=== PATIENT | female | born 1960 | race Caucasian/White ===

== ENCOUNTER 2018-01-10 08:04 | Inpatient (IN) | payer OTHER, MEDICARE ==
[2017-12-23 09:49] VITALS: BMI 25.7
--- NOTE | 2018-01-10 07:57 | HP ---
Satellite [facility] - Chief Complaint Chief Complaint: left hip pain - Past Medical History Allergies/Adverse Reactions: Allergies Allergy/AdvReac Type Severity Reaction Status Date / Time No Known Drug Allergies Allergy Verified 12/23/17 09:41 - Current Medications Current Medications: Home Medications Medication Instructions Recorded Atorvastatin Ca [Lipitor -] 20 mg PO HS 11/09/14 Calcium Carb/Vitamin D3/Vit K1 1 each PO DAILY 12/23/17 [Calcium + D Soft Chewable Tab] Gabapentin 400 mg PO BID 12/23/17 Multivitamin [Poly-Vitamin] 1 each PO DAILY 12/23/17 Nabumetone [Relafen -] 750 mg PO DAILY 12/23/17 Ubidecarenone [Coq-10] 100 mg PO DAILY 12/23/17 Vitamin B Complex [B Complex] 1 each PO DAILY 12/23/17 Satellite Physical Exam - Physical Examination General Appearance: Well Nourished, Well Developed, Alert & Oriented x3 ENT: Clear Lung: Normal air movement Heart: Regular rate & rhythm Extremities: Other (left hip- + ttp ,dec rom, nvi xrays show grade 4 hip djd) Neurological: Intact, Alert, Oriented Satellite Impression/Plan - Impression/Plan Impression: left hip djd Operative Procedure: left cynthia thr Date to be Performed: 01/10/18
[2018-01-10] MEDS ORDERED: CEFAZOLIN 2 GM in DEXTROSE 5%-WATER - 50 ML IVPB ONE (08:27)
[2018-01-10] MEDS ORDERED: TRANEXAMIC ACID 1000 MG/10 ML VIAL IVPUSH ONE (08:27)
[2018-01-10] MEDS: CELECOXIB 200 MG CAPSULE PO ONE ×2 (09:15→15:39)
[2018-01-10] MEDS: GABAPENTIN 300 MG CAPSULE (FP) PO ONE ×2 (09:15→15:39)
[2018-01-10] MEDS ORDERED: EPINEPHrine/PF 1 MG/1 ML (1:1,000) AMPULE ONE (10:47)
[2018-01-10] MEDS ORDERED: ROPIVACAINE HCL 0.5% 30ML VIAL ONE (10:47)
[2018-01-10] MEDS ORDERED: MIDAZOLAM HCL 2 MG/2 ML SINGLE DOSE VIAL ONE ×2 (10:47→11:10)
[2018-01-10] MEDS ORDERED: DEXAMETHASONE SOD PHOSPHATE/PF 10 MG/ML SDV ONE (10:47)
[2018-01-10] MEDS ORDERED: ceFAZolin SODIUM 1 GM VIAL ONE ×2 (11:00→12:45)
[2018-01-10] MEDS ORDERED: LIDOCAINE HCL/PF 2% SDV 5ML VIAL ONE (11:00)
[2018-01-10] MEDS ORDERED: PROPOFOL 20 ML ONE ×2 (11:00→13:09)
[2018-01-10] MEDS ORDERED: VANCOMYCIN 1,000 MG VIAL (RESTRICTED TO ID ONLY) ONE (11:00)
[2018-01-10] MEDS ORDERED: ACETAMINOPHEN 325 MG TABLET (FP) PO PRN (12:32)
[2018-01-10] MEDS ORDERED: ONDANSETRON 4 MG/2 ML VIAL IVPUSH PRN (12:32)
[2018-01-10] MEDS ORDERED: oxyCODONE HCL 5 MG TABLET PO PRN (12:33)
[2018-01-10] MEDS ORDERED: DEXAMETHASONE SOD PHOSPHATE 4 MG/1 ML VIAL ONE (12:45)
[2018-01-10] MEDS ORDERED: PHENYLEPHRINE HCL 10 MG/1 ML SINGLE DOSE VIAL ONE (13:15)
[2018-01-10] MEDS ORDERED: ePHEDrine SULFATE 50 MG/1 ML AMPULE ONE (13:15)
[2018-01-10] MEDS ORDERED: MAG HYDROX/AL HYDROX/SIMETH 30 ML UNIT-DOSE CUP PO PRN (13:40)
[2018-01-10] MEDS ORDERED: MAGNESIUM HYDROX 2400MG/30ML ORAL SUSPENSION 30 ML CUP PO PRN (13:40)
--- NOTE | 2018-01-10 13:43 | OP ---
Operative Note - Note: Operative Date: 01/10/18 (karla) Pre-Operative Diagnosis: left hip djd Operation: left cynthia thr Post-Operative Diagnosis: Same as Pre-op Surgeon: Izaiah Loyd Welt Insole Channeler: Trung Cabrera Anesthesiologist/FULL STACK JAVA DEVELOPER: Simon Hillman Anesthesia: Spinal, Local Specimens Removed: femoral head Estimated Blood Loss (mls): 100 Operative Report Dictated: Yes
[2018-01-10] MEDS ORDERED: LACTATED RINGERS SOLUTION 1,000 ML IV SCH (13:45)
--- NOTE | 2018-01-10 13:56 | SPEC ---
DATE OF OPERATION: 01/10/2018 PREOPERATIVE DIAGNOSIS: Degenerative joint disease left hip. POSTOPERATIVE DIAGNOSIS: Degenerative joint disease left hip. PROCEDURE PERFORMED: Left total hip replacement with robotic-assisted navigation (MAKOplasty). SURGICAL ATTENDING: Izaiah Loyd MD PROPOSAL WRITER: BRITTANY Mckinley ANESTHESIA: Regional and spinal. CLOSURE: An Rafy hip system with a 48 Trident 2 Press-Fit acetabulum, a +3 NDM head, and No. 6 Accolade 2 femoral stem. Number 1 Vicryl for fascia, 0 and 2-0 subcutaneous, 3-0 V-Loc subcuticular for skin with skin glue, 4-0 undyed Vicryl for pin sites. ESTIMATED BLOOD LOSS: Less than 100 mL. COMPLICATIONS: None. CONDITION: To the recovery room in stable condition. DESCRIPTION OF PROCEDURE: The patient was taken to the operating room on January 10, 2018. General and regional anesthesia was administered by the anesthesiologist. IV Kefzol and TXA were administered prophylactically prior to the case. The patient was placed in the lateral decubitus position will all prominences well-padded. The left hip area was prepped and draped in the usual sterile fashion. Using 3 small stab incisions over the iliac crest, 3 threaded pins were drilled in power fashion through the 2 tables of the crest. These pins were fastened and the navigation array for the Niles navigation system. Next, a 12 to 15-cm curved longitudinal incision over the posterolateral aspect of the greater trochanter was incised. Hemostasis was achieved with Bovie cautery. Sharp dissection was carried down to level of the fascia. The fascia was opened the entire length of the incision, spreading the fibers of the gluteus lawanda in the direction of origin. A Charnley retractor was placed in this layer. Care was taken not to impale the sciatic nerve. The short external rotators were detached off the insertion of the greater trochanter and peeled off the capsule. A posterior capsulotomy was then performed. A check point was malleted into the greater trochanter and a point on the inferior pole of the patella was obtained as well. These 2 points were used to assess the preoperative offset and limb lengths of the hip. The hip was then dislocated. The femoral neck was then osteotomized down to the appropriate level as directed by the navigation device. Anterior and posterior retractors were placed, exposing the acetabulum. A circumferential labral excision was performed. A check point was malleted into the acetabulum as well. Multiple sites inside the acetabulum and around the rim were utilized to register the acetabulum with the navigation device. An excellent registration of less than 0.5 mm was obtained. The hip was then reamed with the appropriate reamer down to the appropriate depth, with the appropriate orientation and version as assessed on our preoperative plan for this patient. The reamer was removed and the acetabulum was inspected to have good bleeding surfaces throughout. The real acetabular cup was then malleted down into place, with the holes in the appropriate position, until an excellent fixation was obtained. No screws were necessary. The navigation device ensured appropriate orientation and version, with the depth as predetermined. The appropriate liner was then clipped into place. Attention was directed to the femur. The proximal femur was prepared by use a box chisel, a canal finder and serial broaches until the broach achieved excellent rigidity in the proximal femur with the appropriate version being applied. A calcar planer was used to smooth off the calcar flush with the trial components. A trial reduction with the appropriate head was done, and the hip was reduced. The hip was taken through a range of motion from full extension with external rotation to marked flexion, and was stable at 90 degrees of flexion. It was stable to marked abduction and internal rotation, with a positive hang test and negative telescoping. Limb lengths were ascertained visually as well as with the navigation device to be within the targeted range for this patient. The trial component was removed. The real component was then malleted into place. The head was cold welded to the trunnion, and the hip was reduced. Range of motion, stability and limb lengths were as described in the trial component. Then the hip was pulse antibiotic irrigated. Vancomycin powder was placed in the hip joint. The capsule was closed. The fascia was then closed as well using number 1 Vicryl interrupted suture, 0 and 2-0 subcutaneous, and 3-0 V-Loc for the skin. 4-0 undyed Vicryl was used to close the pin sites after the pins were removed. All check points were also removed. Sterile Aquacel dressing was applied. The patient was awakened from anesthesia and transferred into the supine position. Bilateral SCDs and an abduction pillow were placed. X-rays revealed excellent position of the components. The patient was transferred to the recovery room in stable condition, with no complications. Estimated blood loss was less than 100 mL. Jacinta RODRIGUEZ/[id number]
[2018-01-10] MEDS ORDERED: ONDANSETRON 4 MG/2 ML VIAL IVPUSH ONE (14:20)
[2018-01-10] MEDS: GABAPENTIN 400 MG CAPSULE (FP) PO SCH (21:02)
[2018-01-10] MEDS: SENNOSIDES/DOCUSATE COMBO (SENNA PLUS) TABLET (UD) PO SCH (21:02)
[2018-01-10] MEDS: oxyCODONE HCL 5 MG TABLET PO PRN (21:02)
[2018-01-10] MEDS: ATORVASTATIN CA 20 MG TABLET (FP) PO SCH (21:02)
[2018-01-10] MEDS: CEFAZOLIN 2 GM/D5W 2 GM/50 ML ML IVPB SCH (21:03)
[2018-01-11] MEDS: CEFAZOLIN 2 GM/D5W 2 GM/50 ML ML IVPB SCH (04:05)
[2018-01-11] MEDS: ONDANSETRON 4 MG/2 ML VIAL IVPUSH PRN ×2 (04:54→12:00)
--- NOTE | 2018-01-11 08:46 | PN ---
Progress Note (short form) - Note Progress Note: Ortho Pt seen and examined s/p left cynthia thr pod #1 Selected Entries 01/11/18 06:59 Temperature 97.7 F Pulse Rate 66 Respiratory 18 Rate Blood Pressure 110/49 Laboratory Tests 01/11/18 07:10 WBC Pending Hgb Pending Hct Pending Plt Count Pending dressing c/d/i, calf soft, nt nvi a/p PT hip precautions dvt ppx pain control d/c home tomorrow if stable
[2018-01-11 08:48] LABS: HEMATOCRIT 34.7 % (32.4-45.2); HEMOGLOBIN 11.4 GM/dl (10.7-15.3); MCH 27.4 pg (25.7-33.7); MCHC 32.9 g/dl (32.0-36.0); MEAN CELL VOLUME 83.3 fl (80-96); MEAN PLT VOLUME 8.8 fl (7.5-11.1); PLATELET COUNT 199 K/MM3 (134-434); RBC 4.17 M/mm3 (3.60-5.2); RDW 13.7 % (11.6-15.6); WHITE BLOOD COUNT 8.9 K/mm3 (4.0-10.8)
[2018-01-11] MEDS: oxyCODONE HCL 5 MG TABLET PO PRN ×3 (09:17→20:12)
[2018-01-11] MEDS: MULTIVITAMINS (DAILY MVI) TABLET (FP) PO SCH (09:18)
[2018-01-11] MEDS: PANTOPRAZOLE 40 MG TABLET (FP) PO SCH (09:18)
[2018-01-11] MEDS: GABAPENTIN 400 MG CAPSULE (FP) PO SCH ×2 (09:18→22:14)
[2018-01-11] MEDS: SENNOSIDES/DOCUSATE COMBO (SENNA PLUS) TABLET (UD) PO SCH ×2 (09:18→22:14)
[2018-01-11] MEDS: ASPIRIN 325 MG TABLET PO SCH (09:18)
[2018-01-11] MEDS ORDERED: PATIENT'S OWN MEDICATION (NON-FORMULARY) (Multivitamin [Poly-Vitamin] 1 EACH) PO SCH (10:00)
[2018-01-11] MEDS: ATORVASTATIN CA 20 MG TABLET (FP) PO SCH (22:14)
[2018-01-12] MEDS: oxyCODONE HCL 5 MG TABLET PO PRN ×2 (03:11→09:18)
[2018-01-12 06:08] VITALS: BP 99/52; PULSE 93; TEMP 98.2
--- NOTE | 2018-01-12 08:46 | PN ---
Progress Note (short form) - Note Progress Note: Ortho Pt seen and examined s/p left cynthia thr pod #2 Selected Entries 01/12/18 06:00 Temperature 98.2 F Pulse Rate 93 H Respiratory 18 Rate Blood Pressure 99/52 Laboratory Tests 01/12/18 06:30 WBC Pending Hgb Pending Hct Pending Plt Count Pending dressing c/d/i, calf soft, nt nvi a/p PT hip precautions dvt ppx pain control d/c home today f/u in 1 week
--- NOTE | 2018-01-12 08:47 | DS ---
Physical Examination Vital Signs: Vital Signs Temperature 98.2 F 01/12/18 06:00 Pulse Rate 93 H 01/12/18 06:00 Respiratory Rate 18 01/12/18 06:00 Blood Pressure 99/52 01/12/18 06:00 O2 Sat by Pulse Oximetry (%) 95 01/12/18 06:07 Discharge Summary Procedures: Principal: left thr Hospital Course: admitted for elective left cynthia thr, uneventful post-op, stable for d/c Condition: Good - Instructions Diet, Activity, Other Instructions: Post-op Instructions-Total Hip Replacement Call the office for a follow-up appointment in 1 week - [phone] Aspirin 325mg daily for 6 weeks. Pain medication was sent into your pharmacy. Apply Graduated Compression Stockings (TEDs) to both lower extremities- remove daily for hygiene ONLY Apply Sequential Compression Device (SCDs) to both Lower extremities remove for PT and hygiene ONLY Apply cold packs to affected area for 15 minutes every 2 hours. Physical Therapist will come to your home for the first 5 days. You will be set up with outpatient PT at your first post-operative visit. Patient may ambulate as tolerated-encourage self care (at least every 2-3 hours while awake) with walker or cane Maintain Aquacel (waterproof) dressing to operative wound (will be removed by surgeon at first office visit) Shower with Aquacel dressing in place-if Aquacel integrity compromised, remove and apply dry sterile dressing and notify Orthopedist. DO NOT SHOWER unless Orthopedists approves without Aquacel dressing CONTACT THE OFFICE FOR ANY CHANGE IN YOUR CONDITION (for example-fever greater than 102 degrees, excessive bleeding from operative site, purulent drainage, severe swelling or pain) GO TO THE EMERGENCY ROOM IF THERE IS A MEDICAL EMERGENCY Hip Precautions: * Keep a rolled towel under affected heel while in bed or chair (to keep knee in extension) * Dependent upon approach: * Posterior - do not cross legs; do not sit on low chairs or toilets. * If you have any questions, please do not hesitate to call the office - [phone]. Referrals: Izaiah Loyd MD [Staff Physician] - - Home Medications Comprehensive Discharge Medication List: Ambulatory Orders Atorvastatin Ca [Lipitor -] 20 mg PO HS 11/09/14 Calcium Carb/Vitamin D3/Vit K1 [Calcium + D Soft Chewable Tab] 1 each PO DAILY 12/23/17 Gabapentin 400 mg PO BID 12/23/17 Multivitamin [Poly-Vitamin] 1 each PO DAILY 12/23/17 Nabumetone [Relafen -] 750 mg PO DAILY 12/23/17 Ubidecarenone [Coq-10] 100 mg PO DAILY 12/23/17 Vitamin B Complex [B Complex] 1 each PO DAILY 12/23/17 Oxycodone HCl/Acetaminophen [Percocet 5-325 mg Tablet -] 1 - 2 tab PO Q6H #50 tab MDD 8 01/10/18
[2018-01-12 08:51] LABS: HEMOGLOBIN 11.8 GM/dl (10.7-15.3); MCH 27.5 pg (25.7-33.7); MCHC 32.7 g/dl (32.0-36.0); MEAN CELL VOLUME 83.9 fl (80-96); MEAN PLT VOLUME 9.3 fl (7.5-11.1); PLATELET COUNT 209 K/MM3 (134-434); RBC 4.29 M/mm3 (3.60-5.2); RDW 13.8 % (11.6-15.6); WHITE BLOOD COUNT 8.8 K/mm3 (4.0-10.8)
[2018-01-12] MEDS: MULTIVITAMINS (DAILY MVI) TABLET (FP) PO SCH (09:18)
[2018-01-12] MEDS: SENNOSIDES/DOCUSATE COMBO (SENNA PLUS) TABLET (UD) PO SCH (09:18)
[2018-01-12] MEDS: ASPIRIN 325 MG TABLET PO SCH (09:18)
[2018-01-12] MEDS: GABAPENTIN 400 MG CAPSULE (FP) PO SCH (09:18)
[2018-01-12] MEDS: PANTOPRAZOLE 40 MG TABLET (FP) PO SCH (09:18)
--- NOTE | 2018-01-17 15:00 | PATH ---
Surgical Pathology Report Patient Name: JOHN MEHTA Med. Rec. #: [id number] /Age/Gender: 1960 (Age: 57) / F Account: [id number] Location: [facility] Taken: 01/10/2018 Received: 01/10/2018 Reported: 01/17/2018 Physicians: Izaiah Loyd M.D. Specimen(s) Received LEFT FEMORAL HEAD Clinical History Left hip osteoarthritis Final Diagnosis FEMORAL HEAD, LEFT, TOTAL HIP REPLACEMENT: DEGENERATIVE JOINT DISEASE. Electronically Signed Gianna Burgess M.D. Gross Description Received in formalin, labeled "left femoral head," is a 4.7 x 4.7 x 3.9 cm. femoral head with a 1.8 cm in length portion of femoral neck attached. The margin of resection is smooth. There is a 3 cm in greatest dimension area of eburnation identified. The remaining articular surface is fleming-yellow and diffusely granular. The underlying trabecular bone is yellow and hard. A customer service representative section is submitted in one cassette, following decalcification. 01/14/2018 [facility]01/14/2018
== END 2018-01-12 12:27 | disposition home health service (06) | DRG 470 ==
LOC: FASU 08:04 → FM/S 08:27
PROVIDERS: ADMIT Orthopaedic Surgery; ATTEND Orthopaedic Surgery
PROC: 8E0Y0CZ Robotic Assisted Procedure of Lower Extremity, Open Approach (ICD-10-PCS; 2018-01-10)
PROC: 0SRB01Z Replacement of Left Hip Joint with Metal Synthetic Substitute, Open Approach (ICD-10-PCS; principal; 2018-01-10 12:40)
DX: M16.12 Unilateral primary osteoarthritis, left hip (principal)
CPT/HCPCS: 36415; 73502-TC-LT-FY; 85027; 88304-TC; 88311-TC; 94760; 97116-GP; 97162-GP

== ENCOUNTER 2020-04-23 08:43 | Inpatient (IN) | payer OTHER, MEDICARE ==
--- NOTE | 2020-04-23 09:01 | PDOC ---
History of Present Illness - General Chief Complaint: Redness To Affected Area Stated Complaint: FACE SWOLLEN Time Seen by Provider: 04/23/20 09:00 History Source: Patient Exam Limitations: No Limitations - History of Present Illness Initial Comments: 04/23/20 09:23 59 y.o. F PMHx for HLD, arthritis presenting due to R facial swelling. Patient reports she ahd woke up on thrusday morning and noticed the R side of her face swollen and red. She went to the ENT yesterday who prescribed valtrex. She came into the ED today due to increased spread of the affected region. Patient states she feels the area is warm to the touch and itchy, and a fontal headache overnight. Patient denies blurry vision, decreased hearing, SOB, chest pain. Patient reports no insect bites, no food or medication changes and has not left the house for the few days prior to symptoms. PCP: Dr. Melendez Specialist: Dr. Munoz PMHx: HLD, arthritis PSHx: Hip replacement 2017 Meds: In Chart Allergies: NKA, nausea w/ percocet 04/23/20 09:35 Is this a multiple visit Asthma Patient?: No Timing/Duration: 24 hours Severity: moderate Past History - Medical History Allergies/Adverse Reactions: Allergies Allergy/AdvReac Type Severity Reaction Status Date / Time No Known Drug Allergies Allergy Verified 04/23/20 08:46 Home Medications: Ambulatory Orders Atorvastatin Ca [Lipitor -] 20 mg PO HS 11/09/14 Gabapentin 400 mg PO BID 12/23/17 Cephalexin [Keflex] 500 mg PO TID 04/23/20 Mupirocin Cream [Bactroban 2% Cream -] 1 applic TP TID 04/23/20 Valacyclovir HCl [Valtrex] 1,000 mg PO TID 04/23/20 Anemia: No Asthma: No Cancer: No Cardiac Disorders: No CVA: No COPD: No CHF: No Dementia: No Diabetes: No GI Disorders: No Disorders: No HTN: No Hypercholesterolemia: Yes Liver Disease: No Seizures: No Thyroid Disease: No - Surgical History Abdominal Surgery: No Appendectomy: No Cardiac Surgery: No Cholecystectomy: No Lung Surgery: No Neurologic Surgery: Yes (LUMBAR L5 DISCECTOMY) Orthopedic Surgery: Yes (2012 RIGHT HIP REPLACEMENT) - Psycho-Social/Smoking History Smoking Status: No Smoking History: Never smoked Have you smoked in the past 12 months: No Number of Cigarettes Smoked Daily: 0 - Substance Abuse Hx (Audit-C & DAST Scrn) How often the patient has a drink containing alcohol: Never Score: In Men: 4 or > Positive; In Women: 3 or > Positive: 0 Screen Result (Pos requires Nsg. Audit-10AR): Negative In the last yr the pt used illegal drug/Rx for NonMed reason: No Score: Yes response is considered Positive: 0 Screen Result (Positive result requires Nsg. DAST-10): Negative Review of Systems - Review of Systems Able to Perform ROS?: Yes Is the patient limited Brazilian proficient: No Constitutional: No: Chills, Fever HEENTM: No: Eye Pain, Blurred Vision, Double Vision Respiratory: No: Cough, Shortness of Breath Cardiac (ROS): No: Chest Pain, Lightheadedness ABD/GI: No: Constipated, Diarrhea, Nausea, Vomiting : No: Burning, Dysuria Musculoskeletal: No: Back Pain, Joint Pain, Muscle Weakness Integumentary: Yes: Erythema, Pruritus, Rash. No: Bruising, Dryness Neurological: Yes: Headache. No: Numbness, Tingling, Dizziness Hematologic/Lymphatic: No: Easy Bleeding, Easy Bruising *Physical Exam - Vital Signs Last Vital Signs Temp Pulse Resp BP Pulse Ox 97.3 F L 92 H 18 148/64 99 04/23/20 08:46 04/23/20 08:46 04/23/20 08:46 04/23/20 08:46 04/23/20 08:46 - Physical Exam General Appearance: Yes: Nourished, Appropriately Dressed HEENT: positive: EOMI, NEVIN, Normal Voice, Symmetrical, TMs Normal, Other (20/50 vision b/l). negative: Normal ENT Inspection, Scleral Icterus (R), Scleral Icterus (L), Muffled/Hoarse voice, Hearing Decreased, TM Bulging, TM Dull, TM Erythema Respiratory/Chest: positive: Lungs Clear, Normal Breath Sounds. negative: Chest Tender, Crackles, Rales, Stridor, Wheezing Cardiovascular: positive: Regular Rhythm, Regular Rate. negative: Edema, JVD, Murmur Gastrointestinal/Abdominal: positive: Normal Bowel Sounds, Flat, Soft. negative: Tender, Distended, Guarding, Rebound Musculoskeletal: positive: Normal Inspection. negative: CVA Tenderness Extremity: negative: Tender, Swelling, Calf Tenderness Integumentary: positive: Dry, Warm, Rash, Swelling, Other (Patient has an area of erythema on the R side of the face starting 1cm anterior of the R ear to the lower eyelid, overall size is approximately 6cm x 6cm, is warm to the touch, no blistering, crusting, abrasions, 1 vesicle). negative: Normal Color Neurologic: positive: Fully Oriented, Alert, Normal Mood/Affect, Normal Response ED Treatment Course - LABORATORY CBC & Chemistry Diagram: 04/23/20 10:05 04/23/20 10:05 Medical Decision Making - Medical Decision Making 04/23/20 09:35 59 y.o. F PMHx for HLD, arthritis presenting due to R facial swelling. DDx: Shingles, Cellulitis, andres anton syndrome Labs: WBC 5, Na 147, K 4.6 - Given Prednisone 60mg, Vancomycin 1g Dispo: Admit 04/23/20 11:29 Discharge - Discharge Information Problems reviewed: Yes Clinical Impression/Diagnosis: Cellulitis Qualifiers: Site of cellulitis: face Qualified Code(s): L03.211 - Cellulitis of face - Admission Yes - Follow up/Referral Referrals: Britt Robles MD [Primary Care Provider] - - Patient Discharge Instructions - Post Discharge Activity
--- NOTE | 2020-04-23 09:04 | PDOC ---
Attending Attestation - Resident Resident Name: Dayday Huerta - ED Attending Attestation I have performed the following: I have examined & evaluated the patient, The case was reviewed & discussed with the resident, I agree w/resident's findings & plan, Exceptions are as noted - HPI HPI: 59 yo F history HL, arthritis presents with R facial swelling and redness. She states she was diagnosed with suspected shingles by ENT yesterday, started on Valtrex. Today she presents to ED because the redness is more extensive. Denies any blurry vision, hearing changes, pain with eye movements. She notes that she scratched an area on her ear prior to this occurring. - Physicial Exam PE: GENERAL: Awake, alert, and fully oriented, in no acute distress HEAD: No signs of trauma. +Erythema to the R side of the face, involving the cheek, religion, extending into the neck EYES: PERRLA, EOMI, sclera anicteric, conjunctiva clear. VA 20/50 on both sides ENT: Auricles normal inspection, hearing grossly normal, nares patent, oropharynx clear without exudates. Moist mucosa NECK: Normal ROM, supple, no lymphadenopathy, JVD, or masses LUNGS: Breath sounds equal, clear to auscultation bilaterally. No wheezes, and no crackles HEART: Regular rate and rhythm, normal S1 and S2, no murmurs, rubs or gallops ABDOMEN: Soft, nontender, normoactive bowel sounds. No guarding, no rebound. No masses EXTREMITIES: Normal range of motion, no edema. No clubbing or cyanosis. No cords, erythema, or tenderness NEUROLOGICAL: Cranial nerves II through XII grossly intact. Normal speech, normal gait. Motor and sensation intact SKIN: Warm, dry, normal turgor. - Medical Decision Making 04/23/20 10:00 Patient diagnosed with suspected shingles as an outpatient. There is one lesion to the religion that may be a vesicle forming, however, I am concerned that multiple dermatomes are involved (at least 3), and that this is so erythematous. Not typical for isolated shingles. I suspect a cellulitis, which may be complicating shingles. No vesicles to ear/eye. Will treat with IV abx and admit. If this spreads to affect eyes/ears, would consider transfer. Discharge - Discharge Information Problems reviewed: Yes Clinical Impression/Diagnosis: Cellulitis Qualifiers: Site of cellulitis: face Qualified Code(s): L03.211 - Cellulitis of face - Follow up/Referral - Patient Discharge Instructions - Post Discharge Activity
--- OUTSIDE RECORDS SUMMARY | 2020-04-23 09:10 | XMS ---
:1960 [facility] Support Name Relationship Address Phone RE Unavailable Unavailable Unavailable JONO MEHTA SISTER [address] [place] [address] MIMA MEHTA MOTHER [address] [place] [address] Re-disclosure Warning The records that you are about to access may contain information from federally- assisted alcohol or drug abuse programs. If such information is present, then the following federally mandated warning applies: This information has been disclosed to you from records protected by federal confidentiality rules (42 CFR part 2). The federal rules prohibit you from making any further disclosure of this information unless further disclosure is expressly permitted by the written consent of the person to whom it pertains or as otherwise permitted by 42 CFR part 2. A general authorization for the release of medical or other information is NOT sufficient for this purpose. The Federal rules restrict any use of the information to criminally investigate or prosecute any alcohol or drug abuse patient.The records that you are about to access may contain highly sensitive health information, the redisclosure of which is protected by Article 27-F of the [facility] Public Health law. If you continue you may haveaccess to information: Regarding HIV / AIDS; Provided by facilities licensed or operated by the [facility] Office of Mental Health; or Provided by the [facility] Office for People With Developmental Disabilities. If such information is present, then the following [facility] mandated warning applies: This information has been disclosed to you from confidential records which are protected by state law. State law prohibits you from making any further disclosure of this information without the specific written consent of the person to whom it pertains, or as otherwise permitted by law. Any unauthorized further disclosure in violation of state law may result in a fine or skilled nursing sentence or both. A general authorization for the release of medical or other information is NOT sufficient authorization for further disclosure. Insurance Providers Payer name Policy type Policy ID Covered Covered libertarian's Policy P julius / Coverage libertarian ID relationship to [place] Inf ormation type kimble MEDICARE [id number] SP [id number] [facility] [id number] SP [id number] CARE [employer] MEDICARE [id number] SP [id number] A
[2020-04-23] MEDS ORDERED: predniSONE 20 MG TABLET (UD) PO ONE (09:55)
[2020-04-23] MEDS ORDERED: VANCOMYCIN 1 GM in D5W (PRE-DOCKED) 1,000 MG/250 ML IVPB ONE (09:56)
[2020-04-23] MEDS ORDERED: VANCOMYCIN 1 GRAM (PRE-DOCKED) 1,000 MG/250 ML BAG IVPB ONE (10:02)
[2020-04-23] MEDS ORDERED: predniSONE 20 MG TABLET (UD) ONE (10:02)
[2020-04-23 10:31] LABS: BASO % 0.6 % (0-2.0); EOS % 0.9 % (0-4.5); HEMATOCRIT 38.8 % (32.4-45.2); HEMOGLOBIN 12.6 GM/dL (10.7-15.3); LYMPH % 18.8 % (8-40); MCH 27.2 pg (25.7-33.7); MCHC 32.4 g/dl (32.0-36.0); MEAN PLT VOLUME 8.2 fl (7.5-11.1); MONO % 17.8 % (3.8-10.2); NEUT % 61.9 % (42.8-82.8); PLATELET COUNT 188 K/MM3 (134-434); RBC 4.62 M/mm3 (3.60-5.2); RDW 14.4 % (11.6-15.6)
[2020-04-23 11:14] LABS: ALBUMIN 3.5 g/dl (3.4-5.0); BILIRUBIN,TOTAL 0.6 mg/dL (0.2-1); CALCIUM 9.2 mg/dL (8.5-10.1); CREATININE 0.6 mg/dL (0.55-1.3); POTASSIUM 4.6 mmol/L (3.5-5.1); TOT PROT 7.1 g/dl (6.4-8.2)
--- OUTSIDE RECORDS SUMMARY | 2020-04-23 13:09 | XMS ---
:1960 Author Organization [facility] Support Name Relationship Address Phone RE Unavailable Unavailable Unavailable RE Unavailable Unavailable Unavailable JANINE SISTER [address] [place] [address] JANINE MOTHER [address] [place] [address] Re-disclosure Warning The records that you are [...] is protected by Article 27-F of the [facility] Public Health law. If you continue you may haveaccess to information: Regarding HIV / AIDS; Provided by facilities licensed or operated by the [facility] Office of Mental Health; or Provided by the [facility] Office for People With Developmental Disabilities. If such information is present, then the following [facility] mandated warning applies: This information has been [...] law may result in a fine or residential sentence or both. A general authorization for the release of medical or other information is NOT sufficient authorization for further disclosure. Insurance Providers Payer name Policy type Policy ID Covered Covered republican's Policy P julius / Coverage republican ID relationship to [place] Inf ormation type kimble MEDICARE [id number] SP [id number] [facility] [id number] [employer] MEDICARE [id number] SP [id number] A
[2020-04-23] MEDS ORDERED: CEFTRIAXONE 1,000 MG in DEXTROSE 5%-WATER - 50 ML IVPB ONE (14:59)
[2020-04-23] MEDS ORDERED: CEFTRIAXONE 1 GM/50 ML BAG ONE (15:05)
--- NOTE | 2020-04-23 15:10 | HP ---
CHIEF COMPLAINT: Facial swelling PCP: Dr. Britt Robles HISTORY OF PRESENT ILLNESS: 59 y.o. F w/ PMHx HLD, arthritis who presented to the ER c/o worsening R facial swelling and redness. Pt noticed area of redness and swelling . When the rash did not go away, the patient saw an ENT yesterday. The ENT was concerned for possible shingles and prescribed valtrex and cefalexin. She was instructed to got to the ER if the rash got worse. The patient woke up today and the rash had extended and was not up to the right orbital ridge and down under the right eye. She sought medical attention at this time. Patient denies fever, chills, pain in the orbit, pain when moving the right eye, pain in the right face, numbness or tingling on the right face. Recent Travel: none PAST MEDICAL HISTORY: see HPI PAST SURGICAL HISTORY: b/l hip arthroplasty Social History: Smoking: denies Alcohol: denies Drugs: denies Allergies No Known Drug Allergies Allergy (Verified 04/23/20 08:46) HOME MEDICATIONS: Home Medications Medication Instructions Recorded Atorvastatin Ca [Lipitor -] 20 mg PO HS 11/09/14 Gabapentin 400 mg PO BID 12/23/17 Cephalexin [Keflex] 500 mg PO TID 04/23/20 Mupirocin Cream [Bactroban 2% 1 applic TP TID 04/23/20 Cream -] Valacyclovir HCl [Valtrex] 1,000 mg PO TID 04/23/20 REVIEW OF SYSTEMS Negative except as noted in HPI PHYSICAL EXAMINATION Vital Signs - 24 hr 04/23/20 08:46 Temperature 97.3 F L Pulse Rate 92 H Respiratory 18 Rate Blood Pressure 148/64 O2 Sat by Pulse 99 Oximetry (%) GENERAL: Awake, alert, and fully oriented, in no acute distress. HEAD: Normal with no signs of trauma. EYES: Pupils equal, round and reactive to light, extraocular movements intact, sclera anicteric, conjunctiva clear. No lid lag. EARS, NOSE, THROAT: Ears normal, nares patent, oropharynx clear without exudates. Moist mucous membranes. LUNGS: Breath sounds equal, clear to auscultation bilaterally. No wheezes, and no crackles. No accessory muscle use. HEART: Regular rate and rhythm, normal S1 and S2 without murmur, rub or gallop. ABDOMEN: Soft, nontender, not distended, normoactive bowel sounds, no guarding, no rebound, no masses. No hepatomegaly or splenomegaly. LOWER EXTREMITIES: 2+ pulses, warm, well-perfused. No calf tenderness. No peripheral edema. NEUROLOGICAL: Cranial nerves II-X intact. Normal speech. SKIN: There is an area of uniform erythema extending from just anterior to the tragus on the right and extending to the right orbital ridge and extending under the right eye. The erythematous area extends from the hairline to prison down the cheek. There is an area of swelling anterior to the right tragus with no tenderness to palpation and no fluctuance. NO pain upon palpation of the erythematous area. NO pain upon movement of the extraocular muscles. No pain on palpation or gentle compression of the right globe. NO conjuntival injection. Left side of the face is unremarkable. There is one clear vesicle located prison between the tragus and the maxilla. Laboratory Results - last 24 hr 04/23/20 04/23/20 10:05 10:05 WBC 5.0 RBC 4.62 Hgb 12.6 Hct 38.8 MCV 84.0 MCH 27.2 MCHC 32.4 RDW 14.4 Plt Count 188 MPV 8.2 Absolute Neuts (auto) 3.1 Neutrophils % 61.9 Lymphocytes % 18.8 D Monocytes % 17.8 H D Eosinophils % 0.9 Basophils % 0.6 Nucleated RBC % 0 Sodium 140 Potassium 4.6 Chloride 106 Carbon Dioxide 26 Anion Gap 7 L BUN 17.0 Creatinine 0.6 Est GFR (CKD-EPI)AfAm 114.02 Est GFR (CKD-EPI)NonAf 98.38 Random Glucose 94 Calcium 9.2 Total Bilirubin 0.6 AST 21 ALT 23 Alkaline Phosphatase 94 Total Protein 7.1 Albumin 3.5 ASSESSMENT/PLAN: 59 y.o. F w/ PMHx HLD, arthritis who presented to the ER c/o worsening R facial swelling and redness. #Right eye erythema likely secondary to periorbital cellulitis -patient with right periorbital erythema characteristic of cellulitis -patient took one day of cephalexin and valtrex and the rash continued to worsen. -patient has no pain in right eye, is afebrile and apprears nontoxic, so retro-orbital cellulitis is less liekly -will monitor patient closely overnight for worsening -low threshold to tranfer patient to tertiary care center if she starts to exhibit ssx of retro-orbital cellulitis. -s/p vancomycin in the ED -will continue vanc and add ceftriaxone -ID consult for vancomycin dosing Family Medical History Family History: Denies Visit type - Emergency Visit Emergency Visit: Yes ED Registration Date: 04/23/20 Care time: The patient presented to the Emergency Department on the above date and was hospitalized for further evaluation of their emergent condition. - New Patient This patient is new to me today: Yes Date on this admission: 04/23/20 - Critical Care Critical Care patient: No
[2020-04-23] MEDS ORDERED: valACYclovir HCL 1000 MG TABLET PO SCH (15:15)
[2020-04-23] MEDS ORDERED: CEFTRIAXONE 1 GM in DEXTROSE 5%-WATER - 50 ML IVPB ONE (15:27)
[2020-04-23] MEDS: valACYclovir HCL 500 MG TABLET (FP) PO SCH ×2 (16:53→21:51)
[2020-04-23 20:21] VITALS: BMI 26.7
[2020-04-23] MEDS ORDERED: PT OWN MED DRAWER 7, Y5N ONE (20:50)
[2020-04-23] MEDS: GABAPENTIN 400 MG CAPSULE PO SCH (21:51)
[2020-04-23] MEDS: ATORVASTATIN CA 20 MG TABLET (FP) PO SCH (21:51)
[2020-04-24] MEDS: valACYclovir HCL 500 MG TABLET (FP) PO SCH ×2 (05:52→14:28)
[2020-04-24 08:25] LABS: HEMATOCRIT 36.1 % (32.4-45.2); HEMOGLOBIN 12.2 GM/dL (10.7-15.3); MCH 27.6 pg (25.7-33.7); MCHC 33.7 g/dl (32.0-36.0); MEAN PLT VOLUME 7.7 fl (7.5-11.1); PLATELET COUNT 211 K/MM3 (134-434); RDW 14.2 % (11.6-15.6); WHITE BLOOD COUNT 5.4 K/mm3 (4.0-10.0)
[2020-04-24 08:58] LABS: BILIRUBIN,TOTAL 0.6 mg/dL (0.2-1); BLOOD UREA NITROGEN 15.9 mg/dL (7-18); CALCIUM 9.4 mg/dL (8.5-10.1); CREATININE 0.6 mg/dL (0.55-1.3); MAGNESIUM 2.1 mg/dL (1.8-2.4); PHOSPHOROUS 2.9 mg/dL (2.5-4.9); POTASSIUM 4.2 mmol/L (3.5-5.1); TOT PROT 6.5 g/dl (6.4-8.2)
[2020-04-24] MEDS ORDERED: VANCOMYCIN 1 GM in D5W (PRE-DOCKED) 1,000 MG/250 ML IVPB SCH (10:00)
[2020-04-24] MEDS ORDERED: PT OWN MED DRAWER 7, Y5N ONE ×2 (10:53→21:40)
[2020-04-24] MEDS: GABAPENTIN 400 MG CAPSULE PO SCH ×2 (10:55→21:49)
--- NOTE | 2020-04-24 12:27 | PN ---
Physical Exam: SUBJECTIVE: Patient seen and examined. Pt complained of itchiness of the R side of face. Denied pain. Denied changes in detergent/facial products/pets/exposure to allergens. Described it as "burning sensation". Admits to having a tooth extraction 2 weeks ago. Was sent home on amoxicillin. OBJECTIVE: Vital Signs Period Temp Pulse Resp BP Sys/Cornejo Pulse Ox Last 24 Hr 98 F-98.7 F 77-112 16-20 114-148/49-96 95-97 GENERAL: AAOx3, Not in acute distress HEENT: NCAT, EOMI, PERRL, moist mucus membranes. Gums non-tender to palpation. No exudates visualized. CARDIO: RRR, S1, S2 present, no murmurs. PULM: CTA b/l. No wheezes or accessory muscle use. ABDOMEN: soft, nondistended, nontender to palpation. Normoactive bowel sounds. EXTREMITIES: NEURO: CN II-XII grossly intact. Strength 5/5 b/l of upper and lower extremities. SKIN: Erythematous patch on R side of face, tender to palpation. Not warm to the touch compared to L side. No vesicles seen. No fluctuance appreciated. Erythema extends down to pt's neck on R side. Laboratory Last Values WBC 5.4 K/mm3 (4.0-10.0) 04/24/20 07:56 RBC 4.40 M/mm3 (3.60-5.2) 04/24/20 07:56 Hgb 12.2 GM/dL (10.7-15.3) 04/24/20 07:56 Hct 36.1 % (32.4-45.2) 04/24/20 07:56 MCV 82.0 fl (80-96) 04/24/20 07:56 MCH 27.6 pg (25.7-33.7) 04/24/20 07:56 MCHC 33.7 g/dl (32.0-36.0) 04/24/20 07:56 RDW 14.2 % (11.6-15.6) 04/24/20 07:56 Plt Count 211 K/MM3 (134-434) 04/24/20 07:56 MPV 7.7 fl (7.5-11.1) 04/24/20 07:56 Absolute Neuts (auto) 3.1 K/mm3 (1.5-8.0) 04/23/20 10:05 Neutrophils % 61.9 % (42.8-82.8) 04/23/20 10:05 Lymphocytes % 18.8 % (8-40) D 04/23/20 10:05 Monocytes % 17.8 % (3.8-10.2) H D 04/23/20 10:05 Eosinophils % 0.9 % (0-4.5) 04/23/20 10:05 Basophils % 0.6 % (0-2.0) 04/23/20 10:05 Nucleated RBC % 0 % (0-0) 04/23/20 10:05 Sodium 139 mmol/L (136-145) 04/24/20 07:56 Potassium 4.2 mmol/L (3.5-5.1) 04/24/20 07:56 Chloride 106 mmol/L (98-107) 04/24/20 07:56 Carbon Dioxide 29 mmol/L (21-32) 04/24/20 07:56 Anion Gap 4 MMOL/L (8-16) L 04/24/20 07:56 BUN 15.9 mg/dL (7-18) 04/24/20 07:56 Creatinine 0.6 mg/dL (0.55-1.3) 04/24/20 07:56 Est GFR (CKD-EPI)AfAm 114.02 04/24/20 07:56 Est GFR (CKD-EPI)NonAf 98.38 04/24/20 07:56 Random Glucose 90 mg/dL (74-106) 04/24/20 07:56 Calcium 9.4 mg/dL (8.5-10.1) 04/24/20 07:56 Phosphorus 2.9 mg/dL (2.5-4.9) 04/24/20 07:56 Magnesium 2.1 mg/dL (1.8-2.4) 04/24/20 07:56 Total Bilirubin 0.6 mg/dL (0.2-1) 04/24/20 07:56 AST 17 U/L (15-37) 04/24/20 07:56 ALT 21 U/L (13-61) 04/24/20 07:56 Alkaline Phosphatase 81 U/L (45-117) 04/24/20 07:56 Total Protein 6.5 g/dl (6.4-8.2) 04/24/20 07:56 Albumin 3.0 g/dl (3.4-5.0) L 04/24/20 07:56 Active Medications Amoxicillin/Clavulanate Potassium (Augmentin - 875mg Tablet) 1 tab PO BID@0800,1730 [facility] Atorvastatin Calcium (Lipitor -) 20 mg PO HS [facility] Last Admin: 04/23/20 21:51 Dose: 20 mg Documented by: Clindamycin HCl (Cleocin -) 300 mg PO TID [facility] Last Admin: 04/24/20 14:28 Dose: 300 mg Documented by: Gabapentin (Neurontin -) 400 mg PO BID [facility] Last Admin: 04/24/20 10:55 Dose: 400 mg Documented by: Influenza Virus Vaccine (Flulaval Quad [id number] Syr) 60 mcg IM .ONCE ONE Stop: 04/23/20 20:25 Valacyclovir HCl (Valtrex -) 1,000 mg PO TID [facility] Last Admin: 04/24/20 14:28 Dose: 1,000 mg Documented by: Facial CT 04/24 No intraorbital inflammatory changes are identified. Right-sided preseptal periorbital soft tissue edema is seen as well as subcutaneous edema along R face. Mild to moderate L ethmoid sinus mucosal thickening. ASSESSMENT/PLAN: 59 yo F w/ PMH HLD and arthritis presented to the ED with worsening R facial redness, swelling and pain. Pt is admitted for R eye erythema secondary to periorbital cellulitis. R eye erythema secondary to periorbital cellulitis, improving -history of tooth extraction 2 weeks ago. Took amoxicillin. -history of taking one day of cephalexin and valtrex without improvement of rash -Facial bone CT as above -Received vancomycin (04/23-04/24), ceftriaxone 1g once, predisone 60mg -c/w acyclovir 750mg q8H, Ampicillin/sulbactam 3g q8H, vancomycin 1g q12H -c/w gabapentin 400mg BID -ID consulted. HLD, chronic -c/w atorvastatin 20mg qHS Ppx -DVT: lovenox FEN -no standing fluids as pt is eating/drinking -monitor and replete lytes with goal of K+ of 4, Mg++ of 2 -Regular diet COVID pending Dispo: continue to monitor in med/surg Visit type - Emergency Visit Emergency Visit: Yes ED Registration Date: 04/23/20 Care time: The patient presented to the Emergency Department on the above date and was hospitalized for further evaluation of their emergent condition. - New Patient This patient is new to me today: No - Critical Care Critical Care patient: No ATTENDING PHYSICIAN STATEMENT I saw and evaluated the patient. I reviewed the resident's note and discussed the case with the resident. I agree with the resident's findings and plan as documented. SUBJECTIVE: OBJECTIVE: ASSESSMENT AND PLAN:
[2020-04-24] MEDS ORDERED: CLINDAMYCIN HCL 150 MG CAPSULE (FP) PO SCH (14:00)
[2020-04-24] MEDS ORDERED: VANCOMYCIN 1,000 MG in DEXTROSE 5%-WATER - 250 ML IVPB SCH (15:30)
--- NOTE | 2020-04-24 15:32 | PN ---
Teaching Attending Note Name of Resident: Jessica Kwan ATTENDING PHYSICIAN STATEMENT I saw and evaluated the patient. I reviewed the resident's note and discussed the case with the resident. I agree with the resident's findings and plan as documented. SUBJECTIVE: Patient is feeling better, as per patient the swelling is better. Patient had a dental work done 2 weeks ago, and received antibiotic as per patient, had a tooth pulled lower molar. Patient had seen by an ENT who prescribed valtrex, and cephalexin and was told to come to ED. if the swelling and rash gets worse. OBJECTIVE: Vital Signs Temperature 97.9 F 04/24/20 14:00 Pulse Rate 77 04/24/20 14:00 Respiratory Rate 16 04/24/20 14:00 Blood Pressure 111/63 04/24/20 14:00 O2 Sat by Pulse Oximetry (%) 98 04/24/20 14:00 PE: per resident's note right facial swelling with rash improving CBCD WBC 5.4 K/mm3 (4.0-10.0) 04/24/20 07:56 RBC 4.40 M/mm3 (3.60-5.2) 04/24/20 07:56 Hgb 12.2 GM/dL (10.7-15.3) 04/24/20 07:56 Hct 36.1 % (32.4-45.2) 04/24/20 07:56 MCV 82.0 fl (80-96) 04/24/20 07:56 MCHC 33.7 g/dl (32.0-36.0) 04/24/20 07:56 RDW 14.2 % (11.6-15.6) 04/24/20 07:56 Plt Count 211 K/MM3 (134-434) 04/24/20 07:56 MPV 7.7 fl (7.5-11.1) 04/24/20 07:56 CMP Sodium 139 mmol/L (136-145) 04/24/20 07:56 Potassium 4.2 mmol/L (3.5-5.1) 04/24/20 07:56 Chloride 106 mmol/L (98-107) 04/24/20 07:56 Carbon Dioxide 29 mmol/L (21-32) 04/24/20 07:56 Anion Gap 4 MMOL/L (8-16) L 04/24/20 07:56 BUN 15.9 mg/dL (7-18) 04/24/20 07:56 Creatinine 0.6 mg/dL (0.55-1.3) 04/24/20 07:56 Random Glucose 90 mg/dL (74-106) 04/24/20 07:56 Calcium 9.4 mg/dL (8.5-10.1) 04/24/20 07:56 Total Bilirubin 0.6 mg/dL (0.2-1) 04/24/20 07:56 AST 17 U/L (15-37) 04/24/20 07:56 ALT 21 U/L (13-61) 04/24/20 07:56 Alkaline Phosphatase 81 U/L (45-117) 04/24/20 07:56 Total Protein 6.5 g/dl (6.4-8.2) 04/24/20 07:56 Albumin 3.0 g/dl (3.4-5.0) L 04/24/20 07:56 Current Medications Generic Name Dose Route Start Last Admin Trade Name Alaina PRN Reason Stop Dose Admin Atorvastatin Calcium 20 mg 04/23/20 22:00 04/23/20 21:51 Lipitor - PO 20 mg HS JOSIE Administration Gabapentin 400 mg 04/23/20 22:00 04/24/20 10:55 Neurontin - PO 400 mg BID JOSIE Administration Vancomycin HCl 1,000 mg/ 250 mls @ 166.667 mls/hr 04/24/20 15:30 Dextrose IVPB Q12H JOSIE Protocol Ampicillin Sodium/Sulbactam 100 mls @ 200 mls/hr 04/24/20 15:30 Sodium 3 gm/ Sodium Chloride IVPB Q8H-IV JOSIE Influenza Virus Vaccine 60 mcg 04/23/20 20:24 Flulaval Quad [id number] Syr IM 04/23/20 20:25 .ONCE ONE Valacyclovir HCl 1,000 mg 04/23/20 16:45 04/24/20 14:28 Valtrex - PO 1,000 mg TID JOSIE Administration Home Medications Medication Instructions Recorded Atorvastatin Ca [Lipitor -] 20 mg PO HS 11/09/14 Gabapentin 400 mg PO BID 12/23/17 Cephalexin [Keflex] 500 mg PO TID 04/23/20 Mupirocin Cream [Bactroban 2% 1 applic TP TID 04/23/20 Cream -] Valacyclovir HCl [Valtrex] 1,000 mg PO TID 04/23/[address]: right sided preseptal periorbital soft tissue edema is seen as well as sq edema along the right side. Mild to moderate left ethmoid sinus mucosal thickening. ASSESSMENT AND PLAN: This patient is an 59yof with PMHx HLD and arthritis presented to the ED with worsening R facial redness, swelling and pain. Pt is admitted for R periorbital cellulitis with rash. #Right periorbital cellulitis: improving , history of tooth extraction 2 weeks ago. Took amoxicillin. history of taking one day of cephalexin and valtrex without improvement of rash, Facial bone CT as above On IV vancomycin and added Unasyn 3gm q6h and Valtrex , ID consulted will wait for his input. #Covid pending #HLD: on Lipitor continue DVT Px: lovenox
[2020-04-24] MEDS ORDERED: AMOX TR/POT CLAV 875MG/125MG TABLETS (FP) PO SCH (17:30)
[2020-04-24] MEDS: AMPICILLIN NA/SULBACTAM NA 3 GM in SODIUM CHLORIDE 100 ML IVPB SCH (17:54)
--- NOTE | 2020-04-24 19:37 | PN ---
Progress Note (short form) - Note Progress Note: ID Consult dictated ? facial cellulitis ? VZV Obtain BC Empiric Vancomycin/Unasyn/Acyclovir
--- NOTE | 2020-04-24 20:39 | CONS ---
DATE OF CONSULTATION: DATE OF DICTATION: 04/24/2020 The patient is a 59-year-old female who is evaluated for facial cellulitis. The patient reports undergoing an uncomplicated dental extraction approximately 2 weeks prior to admission. She reports that on April 21, she began to develop erythema and swelling of the right side of her face. She had presented as an outpatient to ENT and was prescribed Valtrex for possible herpes zoster. Despite the Valtrex, she had worsening swelling, erythema and tenderness of the right side of her face. Presently she reports pruritus. She denies any pain. Her complaints are mainly of pruritus. She did not notice any vesicular lesions, however, according to one of the emergency room notes, there was a solitary vesicular lesion noted. She was started on Valtrex. She was admitted to the hospital, where she was treated empirically with vancomycin, Unasyn, and Valtrex. She denies a prior history of herpes zoster. She has no complaints of ear pain or loss of hearing. No ocular complaints. No blurriness or change in her visual acuity. No conjunctivitis. PAST MEDICAL HISTORY: Positive for hypertension and osteoarthritis. No known allergies. Medications include vancomycin, Valtrex, ceftriaxone, Unasyn, Lovenox, Lipitor, Neurontin, prednisone. SOCIAL HISTORY: She resides in the community. She is a nonsmoker, occasional EtOH. No recent hospitalizations. SYSTEMS REVIEW: Neurologic: No loss of consciousness, seizure activity, focal weakness. Cardiac: Negative chest pain or palpitations. Respiratory: Negative cough or sputum production. Gastrointestinal: Negative for vomiting or diarrhea. Genitourinary: Negative for urinary tract infection. LABORATORY DATA: White count 5.4, hematocrit 36.1, platelet count 211. Creatinine 0.6. CAT scan of the face showed soft tissue swelling. PHYSICAL EXAMINATION: General: She is awake and alert, she is ambulatory, she is in no acute distress. Vital Signs: Temperature 98.1. Blood pressure 100/63. Pulse 78, regular. Respirations 18 per minute. HEENT: Eyes: Sclerae anicteric. Face: There is confluent erythema involving the right side of the face extending from the right infraorbital area to the preauricular area and to the malar area. It is warm to touch. There are no vesicular lesions noted. There is no periorbital swelling, no conjunctivitis. It did not appear to involve the ear canal. Heart Sounds: S1, S2. Lungs: Clear. Abdomen: Soft, nontender. Extremities: Negative for edema. IMPRESSION: 1. Facial cellulitis. 2. Rule out herpes zoster. Possibilities include facial cellulitis on the basis of dental source. Although no vesicular lesions are noted, the erythema does appear to follow a V1-V2 distribution. Will obtain blood cultures, empiric antibiotic coverage with vancomycin, Unasyn, and acyclovir. Will monitor for worsening rash with development of vesicular lesions. Will follow. Thank you for the kind referral. PRANAY REILLY M.D. [id number]
[2020-04-24] MEDS ORDERED: SODIUM CHLORIDE 1,000 ML IV SCH (21:30)
[2020-04-24] MEDS: ACYCLOVIR INJECTION 750 MG in DEXTROSE 5%-WATER - 100 ML IVPB SCH (21:48)
[2020-04-24] MEDS: ATORVASTATIN CA 20 MG TABLET (FP) PO SCH (21:49)
[2020-04-24] MEDS ORDERED: VANCOMYCIN 1 GRAM (PRE-DOCKED) 1,000 MG/250 ML BAG IVPB SCH (22:00)
[2020-04-24] MEDS: VANCOMYCIN 1 GRAM (PRE-DOCKED) 1,000 MG/250 ML BAG IVPB SCH ×2 (23:12→23:13)
[2020-04-25] MEDS: VANCOMYCIN 1 GRAM (PRE-DOCKED) 1,000 MG/250 ML BAG IVPB SCH ×3 (00:25→23:45)
[2020-04-25] MEDS ORDERED: ONDANSETRON 4 MG TABLET PO ONE (02:45)
[2020-04-25] MEDS ORDERED: PT OWN MED DRAWER 7, Y5N ONE ×3 (03:06→22:03)
[2020-04-25] MEDS: AMPICILLIN NA/SULBACTAM NA 3 GM in SODIUM CHLORIDE 100 ML IVPB SCH ×3 (03:07→17:40)
[2020-04-25] MEDS: ACYCLOVIR INJECTION 750 MG in DEXTROSE 5%-WATER - 100 ML IVPB SCH ×3 (03:47→18:17)
[2020-04-25 07:58] LABS: HEMATOCRIT 34.6 % (32.4-45.2); HEMOGLOBIN 11.4 GM/dL (10.7-15.3); MCHC 32.8 g/dl (32.0-36.0); MEAN CELL VOLUME 82.3 fl (80-96); MEAN PLT VOLUME 7.9 fl (7.5-11.1); PLATELET COUNT 219 K/MM3 (134-434); RBC 4.21 M/mm3 (3.60-5.2); RDW 14.4 % (11.6-15.6); WHITE BLOOD COUNT 4.5 K/mm3 (4.0-10.0)
[2020-04-25 08:24] LABS: BLOOD UREA NITROGEN 17.9 mg/dL (7-18); CALCIUM 8.9 mg/dL (8.5-10.1); CREATININE 0.7 mg/dL (0.55-1.3); MAGNESIUM 2.2 mg/dL (1.8-2.4); POTASSIUM 4.7 mmol/L (3.5-5.1)
--- NOTE | 2020-04-25 09:34 | PN ---
Teaching Attending Note ATTENDING PHYSICIAN STATEMENT I saw and evaluated the patient. I reviewed the resident's note and discussed the case with the resident. I agree with the resident's findings and plan as documented. SUBJECTIVE: OBJECTIVE: Vital Signs Temperature 97.6 F 04/25/20 06:00 Pulse Rate 69 04/25/20 06:00 Respiratory Rate 16 04/25/20 06:00 Blood Pressure 138/64 04/25/20 06:00 O2 Sat by Pulse Oximetry (%) 100 04/25/20 06:00 CBCD WBC 4.5 K/mm3 (4.0-10.0) 04/25/20 07:25 RBC 4.21 M/mm3 (3.60-5.2) 04/25/20 07:25 Hgb 11.4 GM/dL (10.7-15.3) 04/25/20 07:25 Hct 34.6 % (32.4-45.2) 04/25/20 07:25 MCV 82.3 fl (80-96) 04/25/20 07:25 MCHC 32.8 g/dl (32.0-36.0) 04/25/20 07:25 RDW 14.4 % (11.6-15.6) 04/25/20 07:25 Plt Count 219 K/MM3 (134-434) 04/25/20 07:25 MPV 7.9 fl (7.5-11.1) 04/25/20 07:25 CMP Sodium 141 mmol/L (136-145) 04/25/20 07:25 Potassium 4.7 mmol/L (3.5-5.1) 04/25/20 07:25 Chloride 108 mmol/L (98-107) H 04/25/20 07:25 Carbon Dioxide 31 mmol/L (21-32) 04/25/20 07:25 Anion Gap 3 MMOL/L (8-16) L 04/25/20 07:25 BUN 17.9 mg/dL (7-18) 04/25/20 07:25 Creatinine 0.7 mg/dL (0.55-1.3) 04/25/20 07:25 Random Glucose 96 mg/dL (74-106) 04/25/20 07:25 Calcium 8.9 mg/dL (8.5-10.1) 04/25/20 07:25 Total Bilirubin 0.6 mg/dL (0.2-1) 04/24/20 07:56 AST 17 U/L (15-37) 04/24/20 07:56 ALT 21 U/L (13-61) 04/24/20 07:56 Alkaline Phosphatase 81 U/L (45-117) 04/24/20 07:56 Total Protein 6.5 g/dl (6.4-8.2) 04/24/20 07:56 Albumin 3.0 g/dl (3.4-5.0) L 04/24/20 07:56 Current Medications Generic Name Dose Route Start Last Admin Trade Name Freq PRN Reason Stop Dose Admin Atorvastatin Calcium 20 mg 04/23/20 22:00 04/24/20 21:49 Lipitor - PO 20 mg HS JOSIE Administration Enoxaparin Sodium 40 mg 04/25/20 10:00 Lovenox - SQ DAILY JOSIE Gabapentin 400 mg 04/23/20 22:00 04/24/20 21:49 Neurontin - PO 400 mg BID JOSIE Administration Ampicillin Sodium/Sulbactam 100 mls @ 200 mls/hr 04/24/20 17:00 04/25/20 03:07 Sodium 3 gm/ Sodium Chloride IVPB 200 mls/hr Q8H-IV JOSIE Administration Vancomycin HCl 1,000 mg in 250 mls @ 166.667 mls/hr 04/24/20 00:30 04/25/20 00:25 Vancomycin (Pre-Docked) IVPB 166.667 mls/hr Q12H JOSIE Administration Protocol Acyclovir 750 mg/ Dextrose 115 mls @ 100 mls/hr 04/24/20 19:45 04/25/20 03:47 IVPB 100 mls/hr Q8H-IV JOSIE Administration Influenza Virus Vaccine 60 mcg 04/23/20 20:24 Flulaval Quad [id number] Syr IM 04/23/20 20:25 .ONCE ONE Home Medications Medication Instructions Recorded Atorvastatin Ca [Lipitor -] 20 mg PO HS 11/09/14 Gabapentin 400 mg PO BID 12/23/17 Cephalexin [Keflex] 500 mg PO TID 04/23/20 Mupirocin Cream [Bactroban 2% 1 applic TP TID 04/23/20 Cream -] Valacyclovir HCl [Valtrex] 1,000 mg PO TID 04/23/20 ASSESSMENT AND PLAN:
[2020-04-25] MEDS: ENOXAPARIN NA (PORCINE) 40 MG/0.4 ML DISP.SYRIN SQ SCH (10:52)
[2020-04-25] MEDS: GABAPENTIN 400 MG CAPSULE PO SCH ×2 (10:53→22:07)
--- NOTE | 2020-04-25 13:31 | PN ---
Physical Exam: SUBJECTIVE: Patient seen and examined. No acute events overnight. Pt feels better. Less itchy today. OBJECTIVE: Vital Signs Period Temp Pulse Resp BP Sys/Cornejo Pulse Ox Last 24 Hr 97.6 F-98.1 F 69-78 16-18 100-138/55-75 96-100 GENERAL: AAOx3, Not in acute distress HEENT: NCAT, EOMI, PERRL, moist mucus membranes. Gums non-tender to palpation. No exudates visualized. CARDIO: RRR, S1, S2 present, no murmurs. PULM: CTA b/l. No wheezes or accessory muscle use. ABDOMEN: soft, nondistended, nontender to palpation. Normoactive bowel sounds. EXTREMITIES: NEURO: CN II-XII grossly intact. Strength 5/5 b/l of upper and lower extremities. SKIN: Erythematous patch on R side of face, none on neck. Receding erythema Laboratory Last Values WBC 4.5 K/mm3 (4.0-10.0) 04/25/20 07:25 RBC 4.21 M/mm3 (3.60-5.2) 04/25/20 07:25 Hgb 11.4 GM/dL (10.7-15.3) 04/25/20 07:25 Hct 34.6 % (32.4-45.2) 04/25/20 07:25 MCV 82.3 fl (80-96) 04/25/20 07:25 MCH 27.0 pg (25.7-33.7) 04/25/20 07:25 MCHC 32.8 g/dl (32.0-36.0) 04/25/20 07:25 RDW 14.4 % (11.6-15.6) 04/25/20 07:25 Plt Count 219 K/MM3 (134-434) 04/25/20 07:25 MPV 7.9 fl (7.5-11.1) 04/25/20 07:25 Absolute Neuts (auto) 3.1 K/mm3 (1.5-8.0) 04/23/20 10:05 Neutrophils % 61.9 % (42.8-82.8) 04/23/20 10:05 Lymphocytes % 18.8 % (8-40) D 04/23/20 10:05 Monocytes % 17.8 % (3.8-10.2) H D 04/23/20 10:05 Eosinophils % 0.9 % (0-4.5) 04/23/20 10:05 Basophils % 0.6 % (0-2.0) 04/23/20 10:05 Nucleated RBC % 0 % (0-0) 04/23/20 10:05 Sodium 141 mmol/L (136-145) 04/25/20 07:25 Potassium 4.7 mmol/L (3.5-5.1) 04/25/20 07:25 Chloride 108 mmol/L (98-107) H 04/25/20 07:25 Carbon Dioxide 31 mmol/L (21-32) 04/25/20 07:25 Anion Gap 3 MMOL/L (8-16) L 04/25/20 07:25 BUN 17.9 mg/dL (7-18) 04/25/20 07:25 Creatinine 0.7 mg/dL (0.55-1.3) 04/25/20 07:25 Est GFR (CKD-EPI)AfAm 108.38 04/25/20 07:25 Est GFR (CKD-EPI)NonAf 93.51 04/25/20 07:25 Random Glucose 96 mg/dL (74-106) 04/25/20 07:25 Calcium 8.9 mg/dL (8.5-10.1) 04/25/20 07:25 Phosphorus 4.0 mg/dL (2.5-4.9) 04/25/20 07:25 Magnesium 2.2 mg/dL (1.8-2.4) 04/25/20 07:25 Total Bilirubin 0.6 mg/dL (0.2-1) 04/24/20 07:56 AST 17 U/L (15-37) 04/24/20 07:56 ALT 21 U/L (13-61) 04/24/20 07:56 Alkaline Phosphatase 81 U/L (45-117) 04/24/20 07:56 Total Protein 6.5 g/dl (6.4-8.2) 04/24/20 07:56 Albumin 3.0 g/dl (3.4-5.0) L 04/24/20 07:56 COVID-19 (JENSEN) Not detected (Not Detected) 10/10/20 22:15 Active Medications Atorvastatin Calcium (Lipitor -) 20 mg PO HS JOSIE Last Admin: 04/24/20 21:49 Dose: 20 mg Documented by: Enoxaparin Sodium (Lovenox -) 40 mg SQ DAILY JOSIE Last Admin: 04/25/20 10:52 Dose: 40 mg Documented by: Gabapentin (Neurontin -) 400 mg PO BID JOSIE Last Admin: 04/25/20 10:53 Dose: 400 mg Documented by: Ampicillin Sodium/Sulbactam (Sodium 3 gm/ Sodium Chloride) 100 mls @ 200 mls/hr IVPB Q8H-IV JOSIE Last Admin: 04/25/20 10:54 Dose: 200 mls/hr Documented by: Vancomycin HCl (Vancomycin (Pre-Docked)) 1,000 mg in 250 mls @ 166.667 mls/hr IVPB Q12H JOSIE; Protocol Last Admin: 04/25/20 00:25 Dose: 166.667 mls/hr Documented by: Acyclovir 750 mg/ Dextrose 115 mls @ 100 mls/hr IVPB Q8H-IV JOSIE Last Admin: 04/25/20 12:16 Dose: 100 mls/hr Documented by: Influenza Virus Vaccine (Flulaval Quad [id number] Syr) 60 mcg IM .ONCE ONE Stop: 04/23/20 20:[address] 04/24 No intraorbital inflammatory changes are identified. Right-sided preseptal periorbital soft tissue edema is seen as well as subcutaneous edema along R face. Mild to moderate L ethmoid sinus mucosal thickening. ASSESSMENT/PLAN: 59 yo F w/ PMH HLD and arthritis presented to the ED with worsening R facial redness, swelling and pain. Pt is admitted for R eye erythema secondary to periorbital cellulitis. R eye erythema secondary to periorbital cellulitis, improving -history of tooth extraction 2 weeks ago. Took amoxicillin. -history of taking one day of cephalexin and valtrex without improvement of rash -Facial bone CT as above -c/w acyclovir 750mg q8H, Ampicillin/sulbactam 3g q8H, vancomycin 1g q12H (started 04/24) Day 2 -For possible shingles -c/w gabapentin 400mg BID -ID consulted. HLD, chronic -c/w atorvastatin 20mg qHS History of arthritis, chronic -Asymptomatic -continue to monitor Ppx -DVT: lovenox FEN -no standing fluids as pt is eating/drinking -monitor and replete lytes with goal of K+ of 4, Mg++ of 2 -Regular diet COVID negative Dispo: continue to monitor in med/surg. Visit type - Emergency Visit Emergency Visit: Yes ED Registration Date: 04/23/20 Care time: The patient presented to the Emergency Department on the above date and was hospitalized for further evaluation of their emergent condition. - New Patient This patient is new to me today: No - Critical Care Critical Care patient: No ATTENDING PHYSICIAN STATEMENT I saw and evaluated the patient. I reviewed the resident's note and discussed the case with the resident. I agree with the resident's findings and plan as documented. SUBJECTIVE: OBJECTIVE: ASSESSMENT AND PLAN:
[2020-04-25] MEDS ORDERED: FLU VACCINE (FLULAVAL) PF 60 MCG/0.5 ML SYRINGE 2020-2021 IM ONE (18:00)
--- NOTE | 2020-04-25 18:04 | PN ---
Teaching Attending Note Name of Resident: Jessica Kwan ATTENDING PHYSICIAN STATEMENT I saw and evaluated the patient. I reviewed the resident's note and discussed the case with the resident. I agree with the resident's findings and plan as documented. SUBJECTIVE: Patient's face is improving , is still slightly red OBJECTIVE: Vital Signs Temperature 98.1 F 04/25/20 14:28 Pulse Rate 88 04/25/20 14:28 Respiratory Rate 16 04/25/20 14:28 Blood Pressure 108/59 L 04/25/20 14:28 O2 Sat by Pulse Oximetry (%) 98 04/25/20 14:28 PE: per resident's note right facial mildly erythrematous CBCD WBC 4.5 K/mm3 (4.0-10.0) 04/25/20 07:25 RBC 4.21 M/mm3 (3.60-5.2) 04/25/20 07:25 Hgb 11.4 GM/dL (10.7-15.3) 04/25/20 07:25 Hct 34.6 % (32.4-45.2) 04/25/20 07:25 MCV 82.3 fl (80-96) 04/25/20 07:25 MCHC 32.8 g/dl (32.0-36.0) 04/25/20 07:25 RDW 14.4 % (11.6-15.6) 04/25/20 07:25 Plt Count 219 K/MM3 (134-434) 04/25/20 07:25 MPV 7.9 fl (7.5-11.1) 04/25/20 07:25 CMP Sodium 141 mmol/L (136-145) 04/25/20 07:25 Potassium 4.7 mmol/L (3.5-5.1) 04/25/20 07:25 Chloride 108 mmol/L (98-107) H 04/25/20 07:25 Carbon Dioxide 31 mmol/L (21-32) 04/25/20 07:25 Anion Gap 3 MMOL/L (8-16) L 04/25/20 07:25 BUN 17.9 mg/dL (7-18) 04/25/20 07:25 Creatinine 0.7 mg/dL (0.55-1.3) 04/25/20 07:25 Random Glucose 96 mg/dL (74-106) 04/25/20 07:25 Calcium 8.9 mg/dL (8.5-10.1) 04/25/20 07:25 Total Bilirubin 0.6 mg/dL (0.2-1) 04/24/20 07:56 AST 17 U/L (15-37) 04/24/20 07:56 ALT 21 U/L (13-61) 04/24/20 07:56 Alkaline Phosphatase 81 U/L (45-117) 04/24/20 07:56 Total Protein 6.5 g/dl (6.4-8.2) 04/24/20 07:56 Albumin 3.0 g/dl (3.4-5.0) L 04/24/20 07:56 Current Medications Generic Name Dose Route Start Last Admin Trade Name Freq PRN Reason Stop Dose Admin Atorvastatin Calcium 20 mg 04/23/20 22:00 04/24/20 21:49 Lipitor - PO 20 mg HS JOSIE Administration Enoxaparin Sodium 40 mg 04/25/20 10:00 04/25/20 10:52 Lovenox - SQ 40 mg DAILY JOSIE Administration Gabapentin 400 mg 04/23/20 22:00 04/25/20 10:53 Neurontin - PO 400 mg BID JOSIE Administration Ampicillin Sodium/Sulbactam 100 mls @ 200 mls/hr 04/24/20 17:00 04/25/20 17:40 Sodium 3 gm/ Sodium Chloride IVPB 200 mls/hr Q8H-IV JOSIE Administration Vancomycin HCl 1,000 mg in 250 mls @ 166.667 mls/hr 04/24/20 00:30 04/25/20 15:47 Vancomycin (Pre-Docked) IVPB 166.667 mls/hr Q12H JOSIE Administration Protocol Acyclovir 750 mg/ Dextrose 115 mls @ 100 mls/hr 04/24/20 19:45 04/25/20 12:16 IVPB 100 mls/hr Q8H-IV JOSIE Administration Home Medications Medication Instructions Recorded Atorvastatin Ca [Lipitor -] 20 mg PO HS 11/09/14 Gabapentin 400 mg PO BID 12/23/17 Cephalexin [Keflex] 500 mg PO TID 04/23/20 Mupirocin Cream [Bactroban 2% 1 applic TP TID 04/23/20 Cream -] Valacyclovir HCl [Valtrex] 1,000 mg PO TID 04/23/[address]: right sided preseptal periorbital soft tissue edema is seen as well as sq edema along the right side. Mild to moderate left ethmoid sinus mucosal thickening. ASSESSMENT AND PLAN: This patient is an 59yof with PMHx HLD and arthritis presented to the ED with worsening R facial redness, swelling and pain. Pt is admitted for R periorbital cellulitis with rash. #Right periorbital cellulitis: improving , history of tooth extraction 2 weeks ago. s/p amoxicillin. history of taking one day of cephalexin and valtrex without improvement of rash, Facial bone CT as above On IV vancomycin /Unasyn 3gm q6h/acyclovir for possible shingles , ID consult appreciated . #Covid pending #HLD: on Lipitor continue DVT Px: lovenox if continues to improve, possible dc patient home, please check with Id the dc antibiotics
[2020-04-25] MEDS: ATORVASTATIN CA 20 MG TABLET (FP) PO SCH (22:07)
--- NOTE | 2020-04-25 22:24 | PN ---
Progress Note, Physician Chief Complaint: FEELING BETTER NO C/O FACIAL PAIN NO FEVER/CHILLS - Current Medication List Current Medications: Active Medications Atorvastatin Calcium (Lipitor -) 20 mg PO HS [facility] Last Admin: 04/25/20 22:07 Dose: 20 mg Documented by: Enoxaparin Sodium (Lovenox -) 40 mg SQ DAILY JOSIE Last Admin: 04/25/20 10:52 Dose: 40 mg Documented by: Gabapentin (Neurontin -) 400 mg PO BID JOSIE Last Admin: 04/25/20 22:07 Dose: 400 mg Documented by: Ampicillin Sodium/Sulbactam (Sodium 3 gm/ Sodium Chloride) 100 mls @ 200 mls/hr IVPB Q8H-IV JOSIE Last Admin: 04/25/20 17:40 Dose: 200 mls/hr Documented by: Vancomycin HCl (Vancomycin (Pre-Docked)) 1,000 mg in 250 mls @ 166.667 mls/hr IVPB Q12H JOSIE; Protocol Last Admin: 04/25/20 15:47 Dose: 166.667 mls/hr Documented by: Acyclovir 750 mg/ Dextrose 115 mls @ 100 mls/hr IVPB Q8H-IV JOSIE Last Admin: 04/25/20 18:17 Dose: 100 mls/hr Documented by: - Objective Vital Signs: Vital Signs Temperature 97.9 F 04/25/20 22:09 Pulse Rate 81 04/25/20 22:09 Respiratory Rate 16 04/25/20 22:09 Blood Pressure 111/55 L 04/25/20 22:09 O2 Sat by Pulse Oximetry (%) 98 04/25/20 22:09 Constitutional: Yes: No Distress Eyes: Yes: Conjunctiva Clear HENT: Yes: Other (DECREASED R FACIAL ERYTHEMA NO VESICLES NOTED) Cardiovascular: Yes: Regular Rate and Rhythm, S1, S2 Respiratory: Yes: CTA Bilaterally Gastrointestinal: Yes: Normal Bowel Sounds, Soft Edema: No Labs: CBC, BMP 04/25/20 07:25 04/25/20 07:25 Assessment/Plan R FACIAL CELLULITIS ? VZV IMPROVED CONTINUE VANCOMYCIN/ UNASYN/ ACYCLOVIR DISCUSSED WITH SISTER AT BEDSIDE
[2020-04-26] MEDS: AMPICILLIN NA/SULBACTAM NA 3 GM in SODIUM CHLORIDE 100 ML IVPB SCH ×3 (02:48→17:15)
[2020-04-26] MEDS: ACYCLOVIR INJECTION 750 MG in DEXTROSE 5%-WATER - 100 ML IVPB SCH ×2 (03:40→10:21)
--- NOTE | 2020-04-26 08:56 | PN ---
Teaching Attending Note Name of Resident: Jessica Kwan ATTENDING PHYSICIAN STATEMENT I saw and evaluated the patient. I reviewed the resident's note and discussed the case with the resident. I agree with the resident's findings and plan as documented. SUBJECTIVE: patient feels well, has no complaints. States that the swelling/redness on her f scarlet has improved OBJECTIVE: Vital Signs Period Temp Pulse Resp BP Sys/Cornejo Pulse Ox Last 24 Hr 97.7 F-98.1 F 76-81 16-18 111-127/53-63 98-99 Exam as per resident note ASSESSMENT AND PLAN: 59 y/o F with HLD, who presents with R. Periorbital celluitis with rash periorbital Cellulitis Cont IV Abx Patient advised if her symptoms worsen she may need Ophtho/OMFS evaluation Acyclovir for possible shingles appreciate ID recs HLD Cont Statin Ppx: Lovenox
[2020-04-26] MEDS ORDERED: PT OWN MED DRAWER 7, Y5N ONE ×3 (10:14→21:25)
[2020-04-26] MEDS: ENOXAPARIN NA (PORCINE) 40 MG/0.4 ML DISP.SYRIN SQ SCH (10:20)
[2020-04-26] MEDS: GABAPENTIN 400 MG CAPSULE PO SCH ×2 (10:21→21:37)
[2020-04-26 10:52] LABS: BLOOD UREA NITROGEN 11.2 mg/dL (7-18); CALCIUM 9.1 mg/dL (8.5-10.1); CREATININE 0.7 mg/dL (0.55-1.3); POTASSIUM 4.4 mmol/L (3.5-5.1)
[2020-04-26] MEDS: VANCOMYCIN 1 GRAM (PRE-DOCKED) 1,000 MG/250 ML BAG IVPB SCH (12:13)
--- NOTE | 2020-04-26 15:43 | PN ---
Physical Exam: SUBJECTIVE: Patient seen and examined. No acute events overnight. Pt feels better. OBJECTIVE: Vital Signs Period Temp Pulse Resp BP Sys/Cornejo Pulse Ox Last 24 Hr 97.7 F-98.1 F 76-81 16-18 111-127/53-63 98-99 GENERAL: AAOx3, Not in acute distress HEENT: NCAT, EOMI, PERRL, moist mucus membranes. Gums non-tender to palpation. No exudates visualized. CARDIO: RRR, S1, S2 present, no murmurs. PULM: CTA b/l. No wheezes or accessory muscle use. ABDOMEN: soft, nondistended, nontender to palpation. Normoactive bowel sounds. EXTREMITIES: Warm, well-perfused. No edema NEURO: CN II-XII grossly intact. Strength 5/5 b/l of upper and lower extremities. SKIN: Erythematous patch on R side of face, none on neck. Receding erythema Laboratory Last Values WBC 4.5 K/mm3 (4.0-10.0) 04/25/20 07:25 RBC 4.21 M/mm3 (3.60-5.2) 04/25/20 07:25 Hgb 11.4 GM/dL (10.7-15.3) 04/25/20 07:25 Hct 34.6 % (32.4-45.2) 04/25/20 07:25 MCV 82.3 fl (80-96) 04/25/20 07:25 MCH 27.0 pg (25.7-33.7) 04/25/20 07:25 MCHC 32.8 g/dl (32.0-36.0) 04/25/20 07:25 RDW 14.4 % (11.6-15.6) 04/25/20 07:25 Plt Count 219 K/MM3 (134-434) 04/25/20 07:25 MPV 7.9 fl (7.5-11.1) 04/25/20 07:25 Absolute Neuts (auto) 3.1 K/mm3 (1.5-8.0) 04/23/20 10:05 Neutrophils % 61.9 % (42.8-82.8) 04/23/20 10:05 Lymphocytes % 18.8 % (8-40) D 04/23/20 10:05 Monocytes % 17.8 % (3.8-10.2) H D 04/23/20 10:05 Eosinophils % 0.9 % (0-4.5) 04/23/20 10:05 Basophils % 0.6 % (0-2.0) 04/23/20 10:05 Nucleated RBC % 0 % (0-0) 04/23/20 10:05 Sodium 142 mmol/L (136-145) 04/26/20 09:25 Potassium 4.4 mmol/L (3.5-5.1) 04/26/20 09:25 Chloride 106 mmol/L (98-107) 04/26/20 09:25 Carbon Dioxide 31 mmol/L (21-32) 04/26/20 09:25 Anion Gap 5 MMOL/L (8-16) L 04/26/20 09:25 BUN 11.2 mg/dL (7-18) 04/26/20 09:25 Creatinine 0.7 mg/dL (0.55-1.3) 04/26/20 09:25 Est GFR (CKD-EPI)AfAm 108.38 04/26/20 09:25 Est GFR (CKD-EPI)NonAf 93.51 04/26/20 09:25 Random Glucose 52 mg/dL (74-106) L 04/26/20 09:25 Calcium 9.1 mg/dL (8.5-10.1) 04/26/20 09:25 Phosphorus 4.0 mg/dL (2.5-4.9) 04/25/20 07:25 Magnesium 2.2 mg/dL (1.8-2.4) 04/25/20 07:25 Total Bilirubin 0.6 mg/dL (0.2-1) 04/24/20 07:56 AST 17 U/L (15-37) 04/24/20 07:56 ALT 21 U/L (13-61) 04/24/20 07:56 Alkaline Phosphatase 81 U/L (45-117) 04/24/20 07:56 Total Protein 6.5 g/dl (6.4-8.2) 04/24/20 07:56 Albumin 3.0 g/dl (3.4-5.0) L 04/24/20 07:56 COVID-19 (JENSEN) Not detected (Not Detected) 04/23/20 22:15 Active Medications Atorvastatin Calcium (Lipitor -) 20 mg PO HS JOSIE Last Admin: 04/25/20 22:07 Dose: 20 mg Documented by: Enoxaparin Sodium (Lovenox -) 40 mg SQ DAILY JOSIE Last Admin: 04/26/20 10:20 Dose: 40 mg Documented by: Gabapentin (Neurontin -) 400 mg PO BID JOSIE Last Admin: 04/26/20 10:21 Dose: 400 mg Documented by: Ampicillin Sodium/Sulbactam (Sodium 3 gm/ Sodium Chloride) 100 mls @ 200 mls/hr IVPB Q8H-IV JOSIE Last Admin: 04/26/20 10: Dose: 200 mls/hr Documented by: Vancomycin HCl (Vancomycin (Pre-Docked)) 1,000 mg in 250 mls @ 166.667 mls/hr IVPB Q12H JOSIE; Protocol Last Admin: 04/26/20 12:13 Dose: 166.667 mls/hr Documented by: Facial CT 04/24 No intraorbital inflammatory changes are identified. Right-sided preseptal periorbital soft tissue edema is seen as well as subcutaneous edema along R face. Mild to moderate L ethmoid sinus mucosal thickening. ASSESSMENT/PLAN: 59 yo F w/ PMH HLD and arthritis presented to the ED with worsening R facial redness, swelling and pain. Pt is admitted for R eye erythema secondary to periorbital cellulitis. R eye erythema secondary to periorbital cellulitis, improving -history of tooth extraction 2 weeks ago. Took amoxicillin. -history of taking one day of cephalexin and valtrex without improvement of rash -Facial bone CT as above -d/c acyclovir 750mg q8H. C/w Ampicillin/sulbactam 3g q8H, vancomycin 1g q12H (started 04/24) Day 3. -Will transition to Augmentin 875 for 7 days tomorrow. -Advised if symptoms worsen, to be evaluated by opthalmology -c/w gabapentin 400mg BID -ID consulted. HLD, chronic -c/w atorvastatin 20mg qHS History of arthritis, chronic -Asymptomatic -continue to monitor Ppx -DVT: lovenox FEN -no standing fluids as pt is eating/drinking -monitor and replete lytes with goal of K+ of 4, Mg++ of 2 -Regular diet COVID negative Dispo: For discharge tomorrow. Visit type - Emergency Visit Emergency Visit: Yes ED Registration Date: 04/23/20 Care time: The patient presented to the Emergency Department on the above date and was hospitalized for further evaluation of their emergent condition. - New Patient This patient is new to me today: No - Critical Care Critical Care patient: No ATTENDING PHYSICIAN STATEMENT I saw and evaluated the patient. I reviewed the resident's note and discussed the case with the resident. I agree with the resident's findings and plan as documented. SUBJECTIVE: OBJECTIVE: ASSESSMENT AND PLAN:
--- NOTE | 2020-04-26 16:26 | PN ---
Progress Note, Physician Chief Complaint: FEELING BETTER NO C/O FACIAL PAIN NO FEVER/CHILLS - Current Medication List Current Medications: Active Medications Atorvastatin Calcium (Lipitor -) 20 mg PO HS [facility] Last Admin: 04/25/20 22:07 Dose: 20 mg Documented by: Enoxaparin Sodium (Lovenox -) 40 mg SQ DAILY JOSIE Last Admin: 04/26/20 10:20 Dose: 40 mg Documented by: Gabapentin (Neurontin -) 400 mg PO BID JOSIE Last Admin: 04/26/20 10:21 Dose: 400 mg Documented by: Ampicillin Sodium/Sulbactam (Sodium 3 gm/ Sodium Chloride) 100 mls @ 200 mls/hr IVPB Q8H-IV JOSIE Last Admin: 04/26/20 10:21 Dose: 200 mls/hr Documented by: Vancomycin HCl (Vancomycin (Pre-Docked)) 1,000 mg in 250 mls @ 166.667 mls/hr IVPB Q12H JOSIE; Protocol Last Admin: 04/26/20 12:13 Dose: 166.667 mls/hr Documented by: Acyclovir 750 mg/ Dextrose 115 mls @ 100 mls/hr IVPB Q8H-IV JOSIE Last Admin: 04/26/20 10:21 Dose: 100 mls/hr Documented by: - Objective Vital Signs: Vital Signs Temperature 98.5 F 04/26/20 15:52 Pulse Rate 89 04/26/20 15:52 Respiratory Rate 18 04/26/20 15:52 Blood Pressure 114/73 04/26/20 15:52 O2 Sat by Pulse Oximetry (%) 98 04/26/20 15:52 Constitutional: Yes: No Distress Eyes: Yes: Conjunctiva Clear HENT: Yes: Other (ERYTHEMA R FACE CONTINUES TO RESOLVE) Cardiovascular: Yes: Regular Rate and Rhythm, S1, S2 Respiratory: Yes: CTA Bilaterally Gastrointestinal: Yes: Normal Bowel Sounds, Soft. No: Tenderness Edema: No Labs: CBC, BMP 04/25/20 07:25 04/26/20 09:25 Assessment/Plan R FACIAL CELLULITIS ? VZV NO VESICULAR LESIONS NOTED IMPROVED CONTINUE VANCOMYCIN/ UNASYN D/C ACYCLOVIR SUBSTITUTE AUGMENTIN 875MG PO BID X 7 D AM
[2020-04-26] MEDS: ATORVASTATIN CA 20 MG TABLET (FP) PO SCH (21:37)
[2020-04-27] MEDS ORDERED: PT OWN MED DRAWER 7, Y5N ONE (01:01)
[2020-04-27] MEDS: VANCOMYCIN 1 GRAM (PRE-DOCKED) 1,000 MG/250 ML BAG IVPB SCH ×2 (01:04→12:16)
[2020-04-27] MEDS: AMPICILLIN NA/SULBACTAM NA 3 GM in SODIUM CHLORIDE 100 ML IVPB SCH ×2 (02:42→11:07)
--- NOTE | 2020-04-27 10:33 | EKG ---
Test Reason : Blood Pressure : / mmHG Vent. Rate : 073 BPM Atrial Rate : 073 BPM P-R Int : 162 ms QRS Dur : 098 ms QT Int : 420 ms P-R-T Axes : 052 022 050 degrees QTc Int : 462 ms NORMAL SINUS RHYTHM INCOMPLETE RIGHT BUNDLE BRANCH BLOCK BORDERLINE ECG WHEN COMPARED WITH ECG OF 26-JAN-2018 20:04, PREMATURE VENTRICULAR COMPLEXES ARE NO LONGER PRESENT INCOMPLETE RIGHT BUNDLE BRANCH BLOCK IS NOW PRESENT Confirmed by MD Sherif, Peter ([id number]) on 04/27/2020 10:33:16 AM Referred By: Confirmed By:Peter Gorman MD
[2020-04-27] MEDS: GABAPENTIN 400 MG CAPSULE PO SCH (11:08)
[2020-04-27] MEDS: ENOXAPARIN NA (PORCINE) 40 MG/0.4 ML DISP.SYRIN SQ SCH (11:09)
--- NOTE | 2020-04-27 12:54 | PN ---
Teaching Attending Note Name of Resident: Jessica Kwan ATTENDING PHYSICIAN STATEMENT I saw and evaluated the patient. I reviewed the resident's note and discussed the case with the resident. I agree with the resident's findings and plan as documented. SUBJECTIVE: Overnight patient had some nausea, resolved without intervention Afebrile over night OBJECTIVE: Vital Signs Period Temp Pulse Resp BP Sys/Cornejo Pulse Ox Last 24 Hr 97.7 F-98.5 F 67-89 18-18 105-137/43-73 97-99 Exam as per resident note ASSESSMENT AND PLAN: 59 y/o F with HLD, who presents with R. Periorbital celluitis with rash periorbital Cellulitis Transition to PO Abx today in preparation for discharge Cellulitis improved HLD Cont Statin Ppx: Lovenox Dispo: Discharge home today patient advised to return to ED if her symptoms worsen, she has trouble with her vision
--- NOTE | 2020-04-27 13:25 | DS ---
Physical Exam: SUBJECTIVE: Patient seen and examined. Pt feels well. Pt stated she noticed the redness improve significantly. OBJECTIVE: Vital Signs Period Temp Pulse Resp BP Sys/Cornejo Pulse Ox Last 24 Hr 97.7 F-98.5 F 67-89 18-18 105-137/43-73 97-99 PHYSICAL EXAM GENERAL: AAOx3, Not in acute distress HEENT: NCAT, EOMI, PERRL, moist mucus membranes. CARDIO: RRR, S1, S2 present, no murmurs. PULM: CTA b/l. No wheezes or accessory muscle use. ABDOMEN: soft, nondistended, nontender to palpation. Normoactive bowel sounds. EXTREMITIES: Warm, well-perfused. No edema SKIN: improved eythematous patch on R side of face. LABS Laboratory Last Values WBC 4.5 K/mm3 (4.0-10.0) 04/25/20 07:25 RBC 4.21 M/mm3 (3.60-5.2) 04/25/20 07:25 Hgb 11.4 GM/dL (10.7-15.3) 04/25/20 07:25 Hct 34.6 % (32.4-45.2) 04/25/20 07:25 MCV 82.3 fl (80-96) 04/25/20 07:25 MCH 27.0 pg (25.7-33.7) 04/25/20 07:25 MCHC 32.8 g/dl (32.0-36.0) 04/25/20 07:25 RDW 14.4 % (11.6-15.6) 04/25/20 07:25 Plt Count 219 K/MM3 (134-434) 04/25/20 07:25 MPV 7.9 fl (7.5-11.1) 04/25/20 07:25 Absolute Neuts (auto) 3.1 K/mm3 (1.5-8.0) 04/23/20 10:05 Neutrophils % 61.9 % (42.8-82.8) 04/23/20 10:05 Lymphocytes % 18.8 % (8-40) D 04/23/20 10:05 Monocytes % 17.8 % (3.8-10.2) H D 04/23/20 10:05 Eosinophils % 0.9 % (0-4.5) 04/23/20 10:05 Basophils % 0.6 % (0-2.0) 04/23/20 10:05 Nucleated RBC % 0 % (0-0) 04/23/20 10:05 Sodium 142 mmol/L (136-145) 04/26/20 09:25 Potassium 4.4 mmol/L (3.5-5.1) 04/26/20 09:25 Chloride 106 mmol/L (98-107) 04/26/20 09:25 Carbon Dioxide 31 mmol/L (21-32) 04/26/20 09:25 Anion Gap 5 MMOL/L (8-16) L 04/26/20 09:25 BUN 11.2 mg/dL (7-18) 04/26/20 09:25 Creatinine 0.7 mg/dL (0.55-1.3) 04/26/20 09:25 Est GFR (CKD-EPI)AfAm 108.38 04/26/20 09:25 Est GFR (CKD-EPI)NonAf 93.51 04/26/20 09:25 Random Glucose 52 mg/dL (74-106) L 04/26/20 09:25 Calcium 9.1 mg/dL (8.5-10.1) 04/26/20 09:25 Phosphorus 4.0 mg/dL (2.5-4.9) 04/25/20 07:25 Magnesium 2.2 mg/dL (1.8-2.4) 04/25/20 07:25 Total Bilirubin 0.6 mg/dL (0.2-1) 04/24/20 07:56 AST 17 U/L (15-37) 04/24/20 07:56 ALT 21 U/L (13-61) 04/24/20 07:56 Alkaline Phosphatase 81 U/L (45-117) 04/24/20 07:56 Total Protein 6.5 g/dl (6.4-8.2) 04/24/20 07:56 Albumin 3.0 g/dl (3.4-5.0) L 04/24/20 07:56 COVID-19 (JENSEN) Not detected (Not Detected) 04/23/20 22:15 HOSPITAL COURSE: 59 yo F w/ PMH HLD and arthritis presented to the ED with worsening R facial redness, swelling and pain. Pt was admitted for R eye erythema secondary to periorbital cellulitis. Pt had history of tooth extraction 2 weeks ago and took amoxicillin after the procedure. Facial CT done and was without intraorbital inflammatory changes. R sided preseptal periorbital soft tissue edema and subcutaneous edema along R face. There is mild to moderate L ethmoid sinus mucosal thickening. Pt placed on acyclovir, Ampicillin/sulbactam and vancomycin. Redness, itchiness and swelling decreased significantly. Pt had no eye pain with movement. Pt is hemodynamically stable and medically optimized for discharge home. She is given 7 days of augmentin to complete her course of antibiotics. She was instructed to follow up if any of her symptoms return and interfered with her eyes. Date of Admission:04/23/20 Date of Discharge: 04/27/20 Minutes to complete discharge: 36 Discharge Summary Problems reviewed: Yes Reason For Visit: CELLULITIS Current Active Problems Arthritis (Chronic) Hyperlipidemia (Chronic) Condition: Improved - Instructions Diet, Activity, Other Instructions: Your visit: You were admitted to the hospital for worsening right facial redness, swelling and itchiness. This is likely due to the tooth extraction you had done recently. Imaging performed in the hospital showed soft tissue swelling as well as subcutaneous swelling. You were also found to have ethmoid sinus mucosal thickening. You were treated with IV antibiotics with improvement of your symptoms. You are now stable and may return home. Medications changes: You have a NEW medication: -Augmentin 875mg/125mg by mouth every 12 hours for 7 days. Your next dose is tomorrow. Take this medication with food or milk. -Continue to take all other home medications as prescribed. -Gabapentin 400mg by mouth twice a day for neuropathic pain. -Atorvastatin 20mg by mouth every night for your cholesterol. Follow up: Visit with your Primary Care Provider, Dr. Robles, in 2 weeks. You may discuss your hospitalization. Additional Instructions: You are being discharged to your home. If you are experiencing any changes in vision, pain with eye movement or return of the rash, please report to the nearest Emergency Department. Please return to the Emergency Department if you experience worsening pain, fevers, chills, shortness of breath, or chest pain, or if you experience any worsening, new or concerning symptoms. Referrals: Britt Robles MD [Primary Care Provider] - 2 Weeks Disposition: HOME - Home Medications Comprehensive Discharge Medication List: Ambulatory Orders Atorvastatin Ca [Lipitor] 20 mg PO HS 11/09/14 Gabapentin 400 mg PO BID 12/23/17 Mupirocin Cream [Bactroban 2% Cream -] 1 applic TP TID 04/23/20 Amox-Tr/K Cl [Augmentin - 875Mg Tablet] 1 tab PO BID #14 tablet 04/26/20 This patient is new to me today: No Emergency Visit: Yes ED Registration Date: 04/23/20 Care time: The patient presented to the Emergency Department on the above date and was hospitalized for further evaluation of their emergent condition. Critical Care patient: No - Discharge Referral Referred to [facility] No ATTENDING PHYSICIAN STATEMENT I saw and evaluated the patient. I reviewed the resident's note and discussed the case with the resident. I agree with the resident's findings and plan as documented. SUBJECTIVE: OBJECTIVE: ASSESSMENT AND PLAN:
[2020-04-27 15:43] VITALS: BP 118/57; PULSE 81; TEMP 98.1
== END 2020-04-27 17:17 | disposition home or self-care (01) | DRG 122 ==
LOC: JER 08:43 → JERBED 12:11 → J5S 19:09
PROVIDERS: ADMIT Internal Medicine; ATTEND Internal Medicine
DX: H05.011 Cellulitis of right orbit (principal); E78.5 Hyperlipidemia, unspecified; M19.90 Unspecified osteoarthritis, unspecified site
CPT/HCPCS: 36415; 70487-TC; 80048; 80053; 83735; 84100; 85025; 85027; 87040; 93005; 93010; 99285-25; C9803; Q2036; Q9967; U0003

== ENCOUNTER 2023-01-06 08:28 | Observation (INO) | payer OTHER, MEDICARE ==
[2023-01-06 10:11] LABS: EPI CELLS 7 /uL (0-25.1); HYALINE CASTS 1 /uL (0-3.1); PH,URINE 7.5 (5.0-8.0); URINE APPEARANCE CLOUDY; URINE BACTERIA 26 /uL (0-1359); URINE BILIRUBIN NEGATIVE (NEGATIVE); URINE COLOR YELLOW; URINE GLUCOSE (UA) NEGATIVE (NEGATIVE); URINE KETONE NEGATIVE (NEGATIVE); URINE LEUK ESTERASE TRACE (NEGATIVE); URINE NITRITE NEGATIVE (NEGATIVE); URINE PROTEIN NEGATIVE (NEGATIVE); URINE RBC 13 /uL (0-23.9); URINE UROBILINOGEN 0.2 mg/dL (0.2-1.0); URINE WBC 8 /uL (0-25.8)
[2023-01-06 10:20] LABS: BASO % 0.8 % (0-2.0); EOS % 3.7 % (0-4.5); HEMATOCRIT 38.7 % (32.4-45.2); HEMOGLOBIN 12.2 GM/dL (10.7-15.3); MCH 26.3 pg (25.7-33.7); MCHC 31.5 g/dl (32.0-36.0); MEAN CELL VOLUME 83.7 fl (80-96); MEAN PLT VOLUME 8.7 fl (7.5-11.1); NEUT % 54.5 % (42.8-82.8); PLATELET COUNT 222 10^3/uL (134-434); RBC 4.62 M/mm3 (3.60-5.2); RDW 14.9 % (11.6-15.6); WHITE BLOOD COUNT 3.6 K/mm3 (4.0-10.0)
[2023-01-06 10:26] LABS: INR 0.97 (0.83-1.09); PROTHROMBIN TIME (PATIENT) 11.3 SEC (9.7-13.0)
[2023-01-06 10:28] LABS: ACTIVATED PTT 33.3 SECONDS (25.2-36.5)
[2023-01-06 10:41] LABS: CALCIUM 9.9 mg/dL (8.5-10.1); POTASSIUM 4.7 mmol/L (3.5-5.1)
[2023-01-06 10:42] LABS: ALBUMIN 3.6 g/dl (3.4-5.0); BLOOD UREA NITROGEN 22.5 mg/dL (7-18)
[2023-01-06 10:45] LABS: CREATININE 0.7 mg/dL (0.55-1.3)
[2023-01-06 10:47] LABS: BILIRUBIN,TOTAL 0.8 mg/dL (0.2-1); TOT PROT 6.6 g/dl (6.4-8.2)
[2023-01-06] MEDS ORDERED: ASPIRIN COATED 81 MG TABLET.EC ONE (16:14)
[2023-01-06] MEDS: ASPIRIN COATED 81 MG TABLET.EC PO SCH (16:19)
[2023-01-06] MEDS: HEPARIN NA (PORCINE) 5,000 UNITS/ML 1ML VIAL SQ SCH (21:22)
[2023-01-06] MEDS: GABAPENTIN 400 MG CAPSULE PO SCH (21:22)
[2023-01-06] MEDS ORDERED: ATORVASTATIN CA 20 MG TABLET (FP) PO SCH (22:00)
[2023-01-06 22:46] VITALS: BMI 24.6
[2023-01-07 08:01] LABS: BASO % 0.8 % (0-2.0); HEMOGLOBIN 12.2 GM/dL (10.7-15.3); LYMPH % 27.6 % (8-40); MCHC 33.1 g/dl (32.0-36.0); MEAN CELL VOLUME 81.5 fl (80-96); MEAN PLT VOLUME 8.1 fl (7.5-11.1); MONO % 9.5 % (3.8-10.2); NEUT % 58.1 % (42.8-82.8); PLATELET COUNT 202 10^3/uL (134-434); RBC 4.54 M/mm3 (3.60-5.2); RDW 15.1 % (11.6-15.6); WHITE BLOOD COUNT 3.7 K/mm3 (4.0-10.0)
[2023-01-07 08:18] LABS: POTASSIUM 4.5 mmol/L (3.5-5.1)
[2023-01-07 08:21] LABS: BLOOD UREA NITROGEN 20.9 mg/dL (7-18); CALCIUM 9.3 mg/dL (8.5-10.1)
[2023-01-07 08:24] LABS: CREATININE 0.6 mg/dL (0.55-1.3)
[2023-01-07] MEDS: ASPIRIN COATED 81 MG TABLET.EC PO SCH (09:02)
[2023-01-07] MEDS: GABAPENTIN 400 MG CAPSULE PO SCH (09:02)
[2023-01-07] MEDS: HEPARIN NA (PORCINE) 5,000 UNITS/ML 1ML VIAL SQ SCH (09:03)
[2023-01-07 14:38] VITALS: RESP 18; TEMP 98.7
[2023-01-07 14:59] VITALS: BP 102/69; PULSE 73
== END 2023-01-07 18:12 | disposition home or self-care (01) ==
LOC: JER 08:28 → JERBED 15:46 → INTOOBSV 15:49 → JERBED 15:49 → UNDOADMOB 15:49 → JERBED 20:05 → J4S 20:05 → J4W 01-07 10:59
PROVIDERS: ADMIT Internal Medicine; ATTEND Internal Medicine
PROC: 3E023GC Introduction of Other Therapeutic Substance into Muscle, Percutaneous Approach (ICD-10-PCS; principal; 2023-01-06)
DX: G45.9 Transient cerebral ischemic attack, unspecified (principal); E78.5 Hyperlipidemia, unspecified
CPT/HCPCS: 36415; 70450-TC; 70551-TC; 71045-TC-FY; 72125-TC; 80048; 80053; 80061; 81003; 82962; 83036; 84484; 85025; 85610; 85730; 86850; 86900; 86901; 87077; 87086; 93005; 93010; 93306-TC; 93880-TC; 96372; 99285-25; G0378; J1644

== ENCOUNTER 2023-07-19 10:01 | Emergency (ER) | payer OTHER, MEDICARE ==
[2023-07-19 10:11] VITALS: BP 156/73; PULSE 104; RESP 18; TEMP 98.5; BMI 25.0
== END 2023-07-19 13:35 | disposition home or self-care (01) ==
LOC: JERFT 10:01
DX: R05.9 Cough, unspecified (principal); R50.9 Fever, unspecified; R09.81 Nasal congestion; J02.9 Acute pharyngitis, unspecified; J06.9 Acute upper respiratory infection, unspecified; U07.1 COVID-19
CPT/HCPCS: 0241U-QW; 71046-TC-FY; 93005; 93010; 99285-25

== ENCOUNTER 2023-11-14 09:08 | Emergency (ER) | payer OTHER, MEDICARE ==
[2023-11-14 09:26] VITALS: BP 158/70; PULSE 89; RESP 17; TEMP 97.3; BMI 25.8
== END 2023-11-14 09:35 | disposition home or self-care (01) ==
LOC: JER 09:08 → JERFT 09:08
DX: H10.32 Unspecified acute conjunctivitis, left eye (principal); R09.81 Nasal congestion
CPT/HCPCS: 99283-25